=== PATIENT | male | born 1940 | race Caucasian/White ===

== ENCOUNTER 2017-01-07 10:30 | Day surgery (SDC) | payer MEDICARE, OTHER ==
[~2017-01-07] VITALS: Ht 165.1 cm; Wt 64.1 kg
[~2017-01-07 10:30] MED LIST: ALDACTONE25 MG PO; AMITRIPTYLINE H50 MG PO; AUGMENTIN 875-11 TAB PO; BACTRIM DS TABL1 TAB PO; BAYER CHEWABLE81 MG PO; CARAFATE1 G; CARDURA2 MG PO; CATAPRES0.1 MG PO; CIPRO500 MG PO; CORDARONE200 MG PO; COREG12.5 MG PO; COREG6.25 MG PO; COUMADIN1 MG PO; COUMADIN3 MG PO; COUMADIN5 MG PO; GLIPIZIDE10 MG PO; GLUCOPHAGE500 MG; GLUCOPHAGE500 MG PO; GLUCOTROL 5 MG T5 MG; HUMULIN R100 U/ML SC; HYDROCODON-ACE1 EAC7 PO; K-TAB10 MEQ; K-TAB10 MEQ PO; LASIX20 MG; LASIX20 MG PO; LEVAQUIN500 MG PO; LEVOXYL25 MCG PO; LOVENOX INJ; LOVENOX60 MG/0.6 SC; MULTIPLE VITAMI1 TA1 PO; NEURONTIN 300300 MG PO; PACERONE200 MG PO; PEPCID20 MG PO; PLAVIX75 MG PO; PRAVACHOL20 MG PO; PRILOSEC20 MG PO; PRINIVIL10 MG PO; ROBITUSSIN AC (10 M1 PO; SALINE FLUSH10 ML IV; SANTYL30 GM TOPICAL; SPRINTEC1 TAB PO; THERAGRAN M PO; TUMS500 MG PO; ULTRAM50 MG PO; ZESTRIL20 MG
[2017-01-07] MEDS ORDERED: CORDARONE200 MG PO (11:07)
[2017-01-07] MEDS ORDERED: ASPIRIN81 MG PO (11:08)
[2017-01-07] MEDS ORDERED: MULTI-DAY VITAM1 TAB PO (11:09)
[2017-01-07] MEDS ORDERED: PROBIOTIC1 EAC1 PO (11:09)
[2017-01-07] MEDS ORDERED: PEPCID20 MG PO (11:10)
[2017-01-07] MEDS ORDERED: LISINOPRIL10 MG PO (11:11)
[2017-01-07] MEDS ORDERED: PERCOCET 10/3251 TA1 PO (11:12)
[2017-01-07] MEDS ORDERED: REGLAN5 MG PO (11:12)
[2017-01-07] MEDS ORDERED: ZOFRAN4 MG PO (11:44)
[2017-01-07 11:52] VITALS: BP 165/75; Ht 165.1 cm; Wt 64.1 kg
[2017-01-07 12:22] LABS: BASOPHILS 0 % (0.0-2.0); EOSINOPHILS 0.5 % (0-7); HEMATOCRIT 26.8 % (42.0-54.0); HEMOGLOBIN 8.8 g/dL (13.5-17.5); IMMATURE GRANULOCYTES 0.2 % (0-5); MCH 30.1 pg (26.0-34.0); MCHC 32.8 g/dL (31.0-37.0); MCV 91.8 fL (80.0-100.0); MEAN PLATELET VOLUME 10.2 fL (7.4-10.4); MONOCYTES 6.6 % (2-11); NEUTROPHILS 79.7 % (40-80); PLATELET COUNT 160 10x3/uL (130-400); RBC 2.92 10x6/uL (4.20-6.10); RDW 15.2 % (11.5-14.5); WBC 5.9 10x3/uL (4.8-10.8)
[2017-01-07 12:42] LABS: ANION GAP 15.1 mmol/L (8-16); CALCIUM 8.5 mg/dL (8.5-10.1); CARBON DIOXIDE 23.8 mmol/L (21.0-32.0); CREATININE - SERUM 1.3 mg/dL (0.6-1.3); POTASSIUM - SERUM 4.9 mmol/L (3.5-5.1)
--- NOTE | 2017-01-08 18:05 | OP ---
PATIENT NAME: GAVIN CAMPO JR MEDICAL RECORD: [id number] :41 LOCATION:[facility]IZ ADMISSION DATE: SURGEON: YANETH GARNICA MD DATE OF OPERATION: 01/07/2017 PROCEDURE: EGD with biopsy. REFERRING PHYSICIAN: Dr. Candido Sage. INDICATIONS: Mr. 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 He had been on a trial of Reglan, which helped with the nausea and vomiting, but it was causing mental status changes and was discontinued. Since the Reglan has been discontinued, he has change his diet to more frequent, but smaller meals in his nausea and vomiting is better. He also has a history of chronic anemia. He presents for outpatient EGD. PREMEDICATIONS: Total IV anesthesia (end-stage liver disease, propofol 90 mg. INSTRUMENT: Olympus video gastroscope. PROCEDURE AND FINDINGS: After receiving informed consent, Mr. Campo's posterior pharynx was anesthetized with Cetacaine spray, placed in left lateral decubitus position, sedated as per anesthesia. After achieving an adequate level of sedation, gastroscope was introduced per orally and advanced to the duodenum without difficulty. The esophageal mucosa was without erythema, ulcers, or masses. Grade I esophageal varices were present in the esophagus. No stigmata of recent bleeding. Small hiatal hernia was noted. Gastric mucosa was notable for multiple streaks of petechiae in the antrum extending into the distal body of the stomach (mild watermelon stomach). There were few angioectasias in the body of the stomach with stigmata of recent bleeding and in the fundus was an small erosive appearing lesion measuring 0.5 cm in size. The edge of which was biopsied. Pylorus was patent and competent. There was mild diffuse erythema involving the antral mucosa and antral biopsies were obtained to rule out Helicobacter pylori. The duodenal bulbar mucosa was erythematous. The second portion of duodenum appeared normal. Gastroscope was then withdrawn. Mr. Campo tolerated the procedure well, no immediate complications. ASSESSMENT: 1. Grade I esophageal varices, nonhemorrhagic. 2. Small hiatal hernia. 3. Early watermelon stomach. 4. Gastritis, status post antral biopsy. 5. Solitary erosion in the fundus, status post biopsy. 6. Mild bulbar duodenitis. 7. 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 8. Nausea and vomiting. Improved likely secondary to diabetic related gastroparesis. RECOMMENDATIONS: 1. Continue small, but more frequent meals. 2. Avoid nonsteroidal anti-inflammatory drugs. 3. Referral to Dr. Will for consideration of argon plasma coagulation of gastric AVMs. OPERATIVE REPORT [id number] GAVIN CAMPO JR TRANSINT:[id number] Voice Confirmation ID: [id number] DOCUMENT ID: [id number] YANETH GARNICA MD at 1805 CC: ANGEL PRESCOTT MD and CANDIDO SAGE MD [id number] DICTATION DATE: 01/07/17 1306 DATA ANALYTICS ARCHITECT: 01/07/17 1434 [facility] 01/07/17 [facility] [address] [place] [address]
== END 2017-01-07 14:00 | disposition home or self-care (01) ==
LOC: D.OPS 10:30
PROVIDERS: Anesthesiology
DX: K70.30 Alcoholic cirrhosis of liver without ascites (principal); I85.10 Secondary esophageal varices without bleeding; K44.9 Diaphragmatic hernia without obstruction or gangrene; K31.819 Angiodysplasia of stomach and duodenum without bleeding; E11.43 Type 2 diabetes mellitus with diabetic autonomic (poly)neuropathy; K31.84 Gastroparesis; K29.50 Unspecified chronic gastritis without bleeding; K29.80 Duodenitis without bleeding; D53.9 Nutritional anemia, unspecified

== ENCOUNTER 2017-01-12 07:37 | Day surgery (SDC) | payer MEDICARE, OTHER ==
[~2017-01-12] VITALS: Ht 165.1 cm; Wt 64.0 kg
[~2017-01-12 07:37] MED LIST changes: +ASPIRIN81 MG PO; +LISINOPRIL10 MG PO; +MULTI-DAY VITAM1 TAB PO; +PERCOCET 10/3251 TA1 PO; +PROBIOTIC1 EAC1 PO; +REGLAN5 MG PO; +ZOFRAN4 MG PO
[2017-01-12 10:51] VITALS: BP 106/55; Ht 165.1 cm; Wt 64.0 kg
[2017-01-12 11:23] LABS: BASOPHILS 0 % (0.0-2.0); EOSINOPHILS 0.9 % (0-7); HEMATOCRIT 25.5 % (42.0-54.0); HEMOGLOBIN 8.2 g/dL (13.5-17.5); IMMATURE GRANULOCYTES 0.2 % (0-5); LYMPHOCYTES 18.1 % (15-50); MCH 29.8 pg (26.0-34.0); MCHC 32.2 g/dL (31.0-37.0); MCV 92.7 fL (80.0-100.0); MEAN PLATELET VOLUME 9.4 fL (7.4-10.4); MONOCYTES 7.7 % (2-11); NEUTROPHILS 73.1 % (40-80); PLATELET COUNT 164 10x3/uL (130-400); RBC 2.75 10x6/uL (4.20-6.10); RDW 15.5 % (11.5-14.5); WBC 4.7 10x3/uL (4.8-10.8)
--- NOTE | 2017-01-12 11:40 | NUR ---
DR RUDOLPH CALLED ABOUT THE H&H OF 8.2 & 25.5. NO NEW ORDERS RECEIVED
--- NOTE | 2017-01-12 15:08 | NUR ---
[address] DR. CHERRY. WEST
[2017-01-12] MEDS ORDERED: PERCOCET 10/3251 TA1 PO (18:30)
--- NOTE | 2017-02-02 14:52 | OP ---
PATIENT NAME: GAVIN CLARK JR MEDICAL RECORD: [id number] :41 LOCATION:D.OPS ADMISSION DATE: SURGEON: DOLORES CHERRY MD DATE OF OPERATION: 01/12/2017 PREOPERATIVE DIAGNOSIS: Open wound of the right below-knee amputation stump. POSTOPERATIVE DIAGNOSIS: Open wound of the right below-knee amputation stump. PROCEDURES: 1. Excisional debridement of the right BKA stump to include skin, subcutaneous tissue, portions of fat, fascia less than 20 cm. 2. Application of Neox graft. SURGEON: Dolores Cherry MD. ANESTHESIA: General. INTRAOPERATIVE COMPLICATIONS: None. SUMMARY OF PATHOLOGIC FINDINGS: What appeared to be very small defect actually turned out to be approximately 1 cm deep x 1 cm wide without undermining. OPERATIVE SUMMARY IN DETAIL: After obtaining the appropriate preoperative orthopedic surgery consent as well as anesthetic consultation, evaluation and clearance, the patient was brought to the operating room and placed on the operating table in supine position. After general laryngeal mask airway was administered, the patient's right BKA stump was prepped and draped in a routine sterile fashion. A sharp debridement was carried out first with the scalpel followed by curettage and rongeur. At this point, the Neox graft was then sewn underneath the skin, covering the opening, held in place firmly with 3-0 Monocryl. Very gentle reapproximation sutures were placed over the end of the wound in hopes that this would close up more rapidly. Sterile dressings were applied. The patient was awakened, taken to recovery room in stable condition. All final needle and sponge counts were correct. TRANSINT:[id number] Voice Confirmation ID: [id number] DOCUMENT ID: [id number] DOLORES CHERRY MD at 1452 CC: [id number] DICTATION DATE: 01/29/17 1017 CHIROPRACTIC PRACTICE MANAGER: 01/29/17 1804 [facility] 01/12/[address] [address]
== END 2017-01-12 21:05 | disposition home or self-care (01) ==
LOC: D.OPS 07:37 → D.PAN 13:00 → D.OPS 13:30
PROVIDERS: Orthopaedic Surgery
DX: T87.43 Infection of amputation stump, right lower extremity (principal); Z89.511 Acquired absence of right leg below knee; Z89.512 Acquired absence of left leg below knee; I25.10 Atherosclerotic heart disease of native coronary artery without angina pectoris; I10 Essential (primary) hypertension; E11.9 Type 2 diabetes mellitus without complications; K21.9 Gastro-esophageal reflux disease without esophagitis; J44.9 Chronic obstructive pulmonary disease, unspecified; Z95.5 Presence of coronary angioplasty implant and graft; K44.9 Diaphragmatic hernia without obstruction or gangrene; E03.9 Hypothyroidism, unspecified

== ENCOUNTER 2017-01-27 13:03 | Outpatient (CLI) | payer MEDICARE, OTHER ==
[~2017-01-27] VITALS: Ht 165.1 cm; Wt 64.1 kg
[2017-01-27 14:37] VITALS: BP 133/66; Ht 165.1 cm; Wt 64.1 kg
--- NOTE | 2017-01-27 16:00 | NUR ---
1525 PRE MEDS GIVEN PER JAN. HGB 7.8 BLOOD CHECKED AT BEDSIDE BY THIS NURSE AND CASSIDY SANCHEZ RN. INITIATED BY ALARIS PUMP AT 50/CC/HR. 1540 PT. DOSING. DENIES PROBLEMS WITH BLOOD, RATE INCREASED TO 100/CC/HR. 1555 BLOOD GOING WELL, RATE INCREASED TO 125/CC/HR.
--- NOTE | 2017-01-27 16:13 | NUR ---
1610 BLOOD GOING WELL, RATE INCREASED TO 200/CC/HR. REG ADA SUPPER TRAY ORDERED.
--- NOTE | 2017-01-27 16:40 | NUR ---
1640 ADA SUPPER DIET SERVED. BLOOD INFUSING WELL. RATE INCREASED TO 225/CC/HR.
--- NOTE | 2017-01-27 17:34 | NUR ---
1715 BLOOD HAS COMPLETED LINE BEING FLUSHED WITH NS. PT ATE 80% ADA SUPPER DIET WHICH WAS SERVED.
--- NOTE | 2017-01-27 17:36 | NUR ---
5170 2ND UNIT CHECKED AT BEDSIDE BY THIS NURSE AND ERIKA DOMÍNGUEZ RN. INITIATED BY PUMP AT 50/CC/HR.
--- NOTE | 2017-01-27 17:46 | NUR ---
1745 DENIES PROBLEMS WITH TRANSFUSION, RATE INCREASED TO 150/CC/HR. NO REQUESTS.
--- NOTE | 2017-01-27 18:04 | NUR ---
1800 NO PROBLEMS NOTED WITH BLOOD TRANSFUSION, RATE INCREASED TO 200/CC/HR.
--- NOTE | 2017-01-27 19:13 | NUR ---
1909 BLOOD HAS COMPLETED, LINE BEING FLUSHED WITH NS.
--- NOTE | 2017-01-27 20:25 | NUR ---
2009 NO ADVERSE REACTION NOTED WITH BLOOD. IV DC'D WITH CATH INTACT. ASSISSTED PT WITH DRESSING AND TRANSFER TO TO CAR, LEAD PERSON HOME. DC INSTS REVIEWED WITH PT AND . VOICED UNDERSTANDING.
== END 2017-01-27 20:25 | disposition home or self-care (01) ==
LOC: D.OPS 13:03
DX: D50.9 Iron deficiency anemia, unspecified (principal); E11.9 Type 2 diabetes mellitus without complications; I74.9 Embolism and thrombosis of unspecified artery

== ENCOUNTER 2017-03-12 09:37 | Day surgery (SDC) | payer MEDICARE, OTHER ==
[~2017-03-12] VITALS: Ht 165.1 cm; Wt 63.5 kg
[2017-03-12 12:08] VITALS: BP 146/77; Ht 165.1 cm; Wt 63.5 kg
--- NOTE | 2017-03-12 12:16 | NUR ---
1215 USED DIAL SOAP TO SHOWER WITH
[2017-03-12 12:27] LABS: BASOPHILS 0 % (0.0-2.0); EOSINOPHILS 0.7 % (0-7); HEMATOCRIT 27.3 % (42.0-54.0); HEMOGLOBIN 9.1 g/dL (13.5-17.5); IMMATURE GRANULOCYTES 0.2 % (0-5); LYMPHOCYTES 12.4 % (15-50); MCH 31.6 pg (26.0-34.0); MCHC 33.3 g/dL (31.0-37.0); MCV 94.8 fL (80.0-100.0); MEAN PLATELET VOLUME 9.7 fL (7.4-10.4); MONOCYTES 7.4 % (2-11); NEUTROPHILS 79.3 % (40-80); PLATELET COUNT 168 10x3/uL (130-400); RBC 2.88 10x6/uL (4.20-6.10); RDW 16.8 % (11.5-14.5); WBC 5.6 10x3/uL (4.8-10.8)
[2017-03-12 12:47] LABS: ANION GAP 13.8 mmol/L (8-16); CALCIUM 8.5 mg/dL (8.5-10.1); CARBON DIOXIDE 23.1 mmol/L (21.0-32.0); CREATININE - SERUM 1.4 mg/dL (0.6-1.3); POTASSIUM - SERUM 4.9 mmol/L (3.5-5.1)
[2017-03-12 12:51] LABS: APTT 28.9 SECONDS (22.8-39.4); INR 1.04 (0.85-1.17); PROTIME 13.4 SECONDS (11.6-15.0)
[2017-03-12] MEDS ORDERED: PERCOCET 10/3251 TA1 PO (14:02)
--- NOTE | 2017-03-12 15:44 | NUR ---
1530 VERIFIED WITH ANESTHESIA PATIENT DOES NOT HAVE TO VOID BEFORE DISCHARGE
--- NOTE | 2017-03-12 16:49 | NUR ---
1600-RECD REPORT FROM TRISH ANTHONY R.N. 1615-DISCHARGE INSTRUCTIONS REVIEWED WITH PATIENT AND . REQUESTS TRANSPORT HOME VIA AMBULANCE. 1630-DR CHERRY APPROVES TRANPORT VIA AMBULANCE AND [facility] NOTIFIED.
--- NOTE | 2017-03-12 18:02 | NUR ---
1800-PATIENT RESTING WITHOUT COMPLAINT OF PAIN. DIET SODA PROVIDED. AT BEDSIDE.
--- NOTE | 2017-03-12 18:35 | NUR ---
1835-[facility] HERE FOR TRANSPORT HOME. HERE WITH HIS PERSONAL BELONGINGS.
--- NOTE | 2017-03-16 09:11 | OP ---
PATIENT NAME: GAVIN CLARK JR MEDICAL RECORD: [id number] :41 LOCATION:D.KATIA ADMISSION DATE: SURGEON: DOLORES CHERRY MD DATE OF OPERATION: 03/12/2017 PREOPERATIVE DIAGNOSIS: Below-knee amputation stump breakdown, right. POSTOPERATIVE DIAGNOSIS: Below-knee amputation stump breakdown, right. PROCEDURE: Revision of BKA stump. SURGEON: Dolores Cherry MD. ANESTHESIA: General. Excisional debridement includes skin, subcutaneous tissue, portions of fat, fascia, muscle and bone greater than 20 cm. OPERATIVE SUMMARY IN DETAIL: After obtaining the appropriate preoperative orthopedic surgery consent as well as anesthetic consultation, evaluation and clearance, the patient was brought to the operating room and placed on the operating table in supine position. After general laryngeal mask was administered, the right lower extremity was prepped and draped in a routine sterile fashion. The patient had a protruding tibia. An incision was made over the old incision line. After curettage, debridement and irrigation, periosteum was stripped circumferentially about the fibula. Portions of fascia and muscle were debrided and did not appear nonviable. A power saw was then used to take off approximately 1 cm of the entire tip of the distal tibia. Having completed this, the wound was again irrigated and closed with #1 Vicryl followed by 2-0 Prolene in interrupted mattress fashion. Sterile dressings were applied. A posterior splint was applied. The patient was awakened and taken back to outpatient in stable condition. All final needle and sponge counts were correct. TRANSINT:[id number] Voice Confirmation ID: [id number] DOCUMENT ID: [id number] DOLORES CHERRY MD at 0911 CC: [id number] DICTATION DATE: 03/12/17 1416 DANCING TEACHER: 03/12/17 1824 [facility] 03/12/17 [place] [id number]
== END 2017-03-12 18:35 | disposition home or self-care (01) ==
LOC: D.OPS 09:37 → D.PAN 12:00 → D.OPS 15:30 → D.PAN 15:30 → D.OPS 18:35
PROVIDERS: Anesthesiology
DX: T87.89 Other complications of amputation stump (principal)

== ENCOUNTER 2017-04-22 08:07 | Day surgery (SDC) | payer MEDICARE, OTHER ==
[~2017-04-22] VITALS: Ht 165.1 cm; Wt 63.5 kg
--- NOTE | ~2017-04-22 | OP ---
PATIENT NAME: GAVIN CLARK JR MEDICAL RECORD: [id number] :41 LOCATION:D.OPS ADMISSION DATE: SURGEON: JIMMY COLEMAN MD DATE OF OPERATION: 04/22/2017 PREOPERATIVE DIAGNOSES: 1. Acute blood loss anemia requiring transfusions. 2. 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 POSTOPERATIVE DIAGNOSES: 1. Acute blood loss anemia requiring transfusions. 2. 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 PROCEDURES: 1. Esophagogastroduodenoscopy with antral biopsies. 2. Ablation of gastric antral vascular ectasias with the argon plasma strategic communications specialist, which is a radiofrequency type of ablation of a benign gastric process. ENDOSCOPIC COURSE: The patient was conveyed to the operating room electively on 04/22/2017. General anesthesia was induced by the anesthesia staff. A bite block was inserted. A gastroscope was inserted into the mouth. It was advanced easily into the hypopharynx. The esophagus was easily intubated as were the stomach and duodenum. Upon withdrawal, retroflexed and angulus views were obtained. Antral biopsies were obtained. The degree of the gastric antral vascular ectasias was not marked. Utilizing the esophageal setting in the forced mode, I ablated all the gastric antral vascular ectasias that I could identify. I saw no ectasias in the cardia, none in the body of the stomach. I slowly withdrew the endoscope. I noted no esophageal varices. The patient was extubated and conveyed to post-anesthesia care unit where he was in stable condition. I plan to see him in the office in 2-3 weeks. He can undergo these procedures on a p.r.n. basis. TRANSINT:[id number] Voice Confirmation ID: [id number] DOCUMENT ID: [id number] JIMMY COLEMAN MD CC: YANETH GARNICA MD, MARIELLE YANG MD and CHARLIE TORRES [id number] DICTATION DATE: 04/22/171246 CIRCULATION SUPERVISOR: 04/22/172349 [facility] 04/22/17 [facility] [address] [place] [address]
--- NOTE | ~2017-04-22 | HP ---
PATIENT: GAVIN CAMPO JR MEDICAL RECORD: [id number] ACCOUNT: [id number] LOCATION:[facility] : 41 ADMISSION DATE: 04/22/17 HISTORY AND PHYSICAL EXAMINATION CHIEF COMPLAINT: Watermelon stomach. 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 The risks, possible complications and alternatives to procedure were explained to the patient. He elects to proceed. Just before the procedure, I contacted Dr. Sage by phone and we discussed the fact that Mr. Campo is requiring 2 units of blood due to a low H&H. ALLERGIES: OMEPRAZOLE, PANTOPRAZOLE, FLU VACCINE WELL REGLAN. HOME MEDICATIONS: Include Neurontin, Percocet, metformin, aspirin, clonidine, lisinopril, Coreg, Lasix, Synthroid. PAST MEDICAL AND SURGICAL HISTORY: Noninsulin dependent diabetes mellitus, coronary stents times 5, anemia, coronary artery disease. SOCIAL HISTORY: Previous smoker. PHYSICAL EXAMINATION: GENERAL: The patient does not appear acutely ill. He does appear chronically ill. VITAL SIGNS: Reviewed. HEAD: External ears appear normal. EYES: Extraocular movements are intact. NECK: Trachea is midline. CHEST: No intercostal retractions. PULMONARY: Nonlabored, no stridor. IMPRESSION: Acute blood loss anemia requiring transfusions, likely due to gastric antral vascular ectasias. PLAN: As described above. TRANSINT:[id number] Voice Confirmation ID: [id number] DOCUMENT ID: [id number] JIMMY COLEMAN MD CC: YANETH GARNICA MD, MARIELLE SAGE MD, CHARLIE TORRES MD and [id number] DUARTE DICTATION DATE: 04/22/17 125 JOINT TERMINAL ATTACK CONTROLLER: 04/22/17 1825 REG [facility] [address] [place] [address]
[2017-04-22] MEDS ORDERED: DOXYCYCLINE HY100 M2 PO (09:09)
[2017-04-22 09:13] LABS: HEMATOCRIT 21.4 % (42.0-54.0); MCH 29.1 pg (26.0-34.0); MCHC 31.8 g/dL (31.0-37.0); MCV 91.5 fL (80.0-100.0); MEAN PLATELET VOLUME 9.4 fL (7.4-10.4); RBC 2.34 10x6/uL (4.20-6.10); RDW 14.5 % (11.5-14.5); WBC 4.6 10x3/uL (4.8-10.8)
[2017-04-22 09:17] VITALS: Ht 165.1 cm; Wt 63.5 kg
[2017-04-22 09:25] LABS: HEMOGLOBIN 6.8 g/dL (13.5-17.5)
[2017-04-22 09:34] LABS: ANION GAP 16.2 mmol/L (8-16); CALCIUM 8.8 mg/dL (8.5-10.1); CARBON DIOXIDE 21.7 mmol/L (21.0-32.0); CREATININE - SERUM 1.8 mg/dL (0.6-1.3); POTASSIUM - SERUM 4.9 mmol/L (3.5-5.1)
--- NOTE | 2017-04-22 19:24 | NUR ---
1045--FIRST UNIT PRBC'S STARTED. ASHLYN RN 1315--FIRST UNIT PRBC'S COMPLETE. ASHLYN RN 1350--SECOND UNIT PRBC'S STARTED. ASHLYN RN 1545--SECOND UNIT PRBC'S COMPLETE. ASHLYN JOSEPH
--- NOTE | 2017-04-22 19:28 | NUR ---
1700--IV DC'D, PT DRESSING WITH 'S ASSISTANCE. ASHLYN JOSEPH 4558--DISCHARGE INSTRUCTIONS GIVEN, PT VERBALIZES UNDERSTANDING. PT OFF UNIT VIA WC. ASHLYN JOSEPH 3369--ALL VITAL SIGNS CHARTED ON BLOOD TRANSFUSION SHEET ON CHART. ASHLYN JOSEPH
== END 2017-04-22 17:42 | disposition home or self-care (01) ==
LOC: D.OPS 08:07 → D.PAN 10:15 → D.OPS 10:25 → D.PAN 10:25 → D.OPS 12:15
PROVIDERS: Anesthesiology
DX: K31.811 Angiodysplasia of stomach and duodenum with bleeding (principal); K29.50 Unspecified chronic gastritis without bleeding; D62 Acute posthemorrhagic anemia; E11.9 Type 2 diabetes mellitus without complications; I25.10 Atherosclerotic heart disease of native coronary artery without angina pectoris; Z95.1 Presence of aortocoronary bypass graft; Z87.891 Personal history of nicotine dependence; Z79.84 Long term (current) use of oral hypoglycemic drugs; Z79.82 Long term (current) use of aspirin; Z79.899 Other long term (current) drug therapy; Z88.7 Allergy status to serum and vaccine; Z88.8 Allergy status to other drugs, medicaments and biological substances

== ENCOUNTER 2017-05-14 09:05 | Outpatient (CLI) | payer MEDICARE, OTHER ==
[~2017-05-14] VITALS: Ht 165.1 cm; Wt 64.1 kg
[~2017-05-14 09:05] MED LIST changes: +DOXYCYCLINE HY100 M2 PO
[2017-05-14 09:40] VITALS: BP 137/53; Ht 165.1 cm; Wt 64.1 kg
--- NOTE | 2017-05-14 12:20 | NUR ---
RECEIVED CARE. PRBC'S INFUSING AT 150ML/HR VIA PUMP. NO SIGNS OF TRANSFUSION REACTION. REGULAR LUNCH TRAY GIVEN.
--- NOTE | 2017-05-14 18:25 | NUR ---
1730 IV DC WITH CATHER TIP INTACT
== END 2017-05-14 18:15 | disposition home or self-care (01) ==
LOC: D.OPS 09:05
DX: D64.9 Anemia, unspecified (principal)

== ENCOUNTER 2017-05-22 12:08 | Inpatient (IN) | payer MEDICARE, OTHER ==
[~2017-05-22] VITALS: Ht 165.1 cm; Wt 63.5 kg
--- NOTE | ~2017-05-22 | OP ---
PATIENT NAME: GAVIN CLARK JR MEDICAL RECORD: [id number] :41 LOCATION:D.MS [place] ADMISSION DATE:05/22/17 SURGEON: JIMMY COLEMAN MD DATE OF OPERATION: 05/22/2017 PREOPERATIVE DIAGNOSIS: Acute cholecystitis. POSTOPERATIVE DIAGNOSES: 1. Acute cholecystitis with extensive intraabdominal adhesions, also severe macronodular cirrhosis. 2. Probable hepatic tumor, likely a hepatocellular carcinoma. PROCEDURE: 1. Laparoscopic cholecystectomy. 2. Intraoperative cholangiography without immediate surgeon interpretation. 3. Liver biopsies, core. SURGEON: Jimmy Coleman MD OBIEE CONSULTANT: None. BLOOD LOSS: Minimal. ANESTHESIA: General. COMPLICATIONS: None. The risks, possible complications, and alternatives to the procedure were explained to the patient. He elects to proceed. OPERATIVE COURSE: The patient was conveyed to the operating room electively on 05/22/2017. General anesthesia was induced by the anesthesia staff. The abdomen was sterilely prepped and draped. A small skin incision was accomplished in the left upper quadrant. A Veress needle was inserted through the skin wanda into the peritoneal cavity. CO2 insufflation was begun. After insufflating the abdomen, a 5-mm trocar was inserted through an incision in the right upper quadrant. Another 5-mm trocar was inserted through an incision in the right upper quadrant. I needed to make some space, so that I could place additional trocars, so adhesiolysis was necessary. The adhesiolysis took 19 minutes. It was performed with the Harmonic scalpel. Once I had cleared enough room in the right upper quadrant to perform a cholecystectomy, a 12-mm trocar was inserted through an incision at the umbilicus where there was an umbilical hernia, which was not incarcerated. Also, another 5-mm trocar was inserted through an incision in the epigastrium. During insertion of the Veress needle and all trocars, there appeared to have been no injury to the bowels, any intraperitoneal or retroperitoneal structures. Under laparoscopic guidance, I percutaneously accessed the right upper quadrant and performed some 18-gauge core needle liver biopsies. The indication for the liver biopsies is cirrhosis. I then lifted up the liver and identified what appeared to be a mass just lateral to the gallbladder. I biopsied this with the 18-gauge core needle liver biopsy device as well. The biopsy sites were made hemostatic with electrocautery. I advanced a cholangiogram trocar. I punctured the fundus of the gallbladder. I injected dye. Real time cholangiographic images were obtained and these were placed in the PACS system for radiologist to OPERATIVE REPORT [id number] GAVIN CLARK JR review. The gallbladder was then grasped and retracted cephalad. The infundibulum was grasped and retracted laterally. Blunt dissection was begun on the triangle of Calot. One cystic artery and 1 cystic duct were identified. These were clipped multiply and divided between clips. The gallbladder was then excised from its bed in the liver. It was placed within an Endobag retrieval device and was withdrawn through the umbilical fascial defect. The 12-mm trocar was placed and the abdomen reinsufflated. I irrigated and aspirated the right upper quadrant. There was no bleeding even at low pressure of 8. Alok was added to the gallbladder fossa for additional hemostasis. All the trocars were removed and the abdomen desufflated. The umbilical fascial defect was closed with a [id number] 0 Vicryl suture. The skin at the umbilicus was closed with interrupted 4-0 Vicryl Rapide sutures. The other skin incisions were closed with interrupted intracuticular 3-0 Vicryls. Benzoin and Steri-Strips were applied. The patient was then extubated and conveyed to the post-anesthesia care unit where he was in stable condition. I contacted his primary care physician, Dr. Candido Sage and informed him of the operative findings. I have also reviewed the operative photographs with the patient's . TRANSINT:[id number] Voice Confirmation ID: [id number] DOCUMENT ID: [id number] JIMMY COLEMAN MD CC: [id number] DICTATION DATE: 05/22/172200 CONTRACT PROGRAMMER: 05/23/17 0234 ADM IN [facility] [address] [place] [address]
--- NOTE | ~2017-05-22 | CN ---
PATIENT NAME:GAVIN CLARK JR MEDICAL RECORD: [id number] : 41 LOCATION:D.MS [place] ADMIT DATE: 05/22/17 ACCOUNT: [id number] CONSULTING PHYSICIAN: JIMMY COLEMAN MD REFERRING PHYSICIAN: MARIELLE SAGE MD DATE OF CONSULTATION: 05/22/2017 CHIEF COMPLAINT: Pain. HISTORY OF PRESENT ILLNESS: The patient has had pain for several days. He had a CT scan today, which was suspicious for a gallbladder infection. He is to undergo cholecystectomy, intraoperative cholangiography, and possible liver biopsy. The risks, possible complications and alternatives to procedure were explained to the patient. He elects to proceed. His symptoms came on slowly. Eating aggravates. Also, palpation aggravates. Nothing alleviates. The symptoms are constant. ALLERGIES: FLU VACCINE WHICH CAUSE HIVES, OMEPRAZOLE, WHICH CAUSES HIM TO BE SHAKY WELL REGLAN, WHICH CAUSES HIM TO BE "CRAZY" HOME MEDICATIONS: Clonidine, Cordarone, Coreg, Glucophage, Glucotrol, K-Dur, Lasix, Levoxyl, Neurontin, Pepcid, Percocet and Zofran. SOCIAL HISTORY: He is a former smoker, quit 2 years ago. PAST MEDICAL AND SURGICAL HISTORY: Coronary artery disease, gastric antral vascular ectasias, hypertension, AFib, atrial flutter, noninsulin-dependent diabetes mellitus, hypothyroidism, on replacement therapy, history of coronary stents, gastroesophageal reflux, chronic nausea, aglkb-tc-ninpyjn renal failure, history of cirrhosis, history of hepatitis A in the past, history of peripheral vascular disease. He has undergone a lower extremity amputation. REVIEW OF SYSTEMS: Negative for CVA or seizures. Negative for COPD. Positive for nausea. REVIEW OF SYSTEMS: Negative other than as is described above. PHYSICAL EXAMINATION: GENERAL: The patient does not appear acutely ill. He does appear chronically ill. VITAL SIGNS: Reviewed. EARS: Appear normal. NECK: Trachea is midline. CHEST: No intercostal retractions. PULMONARY: Mildly labored. ABDOMEN: Right upper quadrant tenderness with guarding. EXTREMITIES: No peripheral cyanosis. INTEGUMENT: There is a bandage over the BKA stump. PSYCHIATRIC: Normal affect. NEUROLOGIC: Nonfocal, no lethargy. BACK: Mild thoracic kyphosis is present. LYMPHATICS: No lymphangitic streaking of the exposed extremities. DIAGNOSTIC: CT images have been reviewed by me. I have also reviewed the CT report. I discussed this case with Dr. Sage personally. CONSULT REPORT [id number] GAVIN CLARK JR IMPRESSION: Acute cholecystitis. PLAN: Laparoscopic cholecystectomy, possible open procedure intraoperative cholangiogram, and possible liver biopsy. The risks, possible complications and alternatives to procedure were explained to the patient. He elects to proceed. Discussion specifically included, but was not limited to, bleeding requiring emergency reoperation, infection, common ductal injury and an open procedure. TRANSINT:[id number] Voice Confirmation ID: [id number] DOCUMENT ID: [id number] JIMMY COLEMAN MD CC: MARIELLE SAGE MD and ERNESTO SUH MD [id number] DICTATION DATE: 05/22/171837 ELECTRONICS ENGINEERING TECHNOLOGIST: 05/23/17 0025 ADM IN [place] [id number] [place] [address]
--- NOTE | 2017-05-22 14:50 | NUR ---
RECEIVED PATIENT VIA WHEELCHAIR FROM XRAY. PATIENT IS AWAKE, ALERT, AND ORIENTED X4. WITH PATIENT. PATIENT STATES HE WENT TO DR. YANG OFFICE TODAY AND THEY SENT HIM HERE TO HAVE AN XRAY AND SURGERY. PATIENT COMPLAINS OF PAIN IN RIGHT SIDE OF HIS ABDOMEN. PATIENT RATES HIS PAIN LEVEL AN "8" ON A 0-10 SCALE. PATIENT STATES HE DID HAVE SOME NAUSEA AND VOMITING LAST NIGHT. ORIENTED PATIENT TO ROOM AND CALL LIGHT. WILL MONITOR
[2017-05-22 15:30] LABS: APTT 34.1 SECONDS (22.8-39.4); INR 1.13 (0.85-1.17); PROTIME 14.4 SECONDS (11.6-15.0)
[2017-05-22 17:43] VITALS: BP 151/66; BMI 23.3
[2017-05-22 17:45] LABS: BASOPHILS 0 % (0-2); EOSINOPHILS 0.3 % (0-7); HEMOGLOBIN 10.5 g/dL (13.5-17.5); IMMATURE GRANULOCYTES 0.3 % (0-5); LYMPHOCYTES 9.2 % (15-50); MCH 29.5 pg (26.0-34.0); MCHC 32.8 g/dL (31.0-37.0); MCV 89.9 fL (80.0-100.0); MEAN PLATELET VOLUME 9.5 fL (7.4-10.4); MONOCYTES 9.5 % (2-11); NEUTROPHILS 80.7 % (40-80); PLATELET COUNT 153 10x3/uL (130-400); RBC 3.56 10x6/uL (4.20-6.10); RDW 17.1 % (11.5-14.5); WBC 6.5 10x3/uL (4.8-10.8)
[2017-05-22 17:53] LABS: ANION GAP 14.7 mmol/L (8-16); CALCIUM 9.1 mg/dL (8.5-10.1); CARBON DIOXIDE 23.1 mmol/L (21.0-32.0); CREATININE - SERUM 1.6 mg/dL (0.6-1.3); POTASSIUM - SERUM 4.8 mmol/L (3.5-5.1)
--- NOTE | 2017-05-22 19:20 | NUR ---
ASSESSMENT COMPLETED, NO ACUTE DISTRESS NOTED, DAY SHIFT NURSE PERFORMING PREOP ORDERS FOR LAP CRISTOBAL, IN ROOM, BOTH DENY NEEDS, SR'S UP X2, CL IN REACH, WILL MONITOR
--- NOTE | 2017-05-22 19:45 | NUR ---
TAKEN TO SURGERY VIA BED BY OR STAFF
[2017-05-22 20:00] VITALS: BP 157/75
--- NOTE | 2017-05-22 20:53 | NUR ---
PT IS UZMA BELOW KNEE AMP, EXTRA PADDING AND PILLOWS PLACED BETWEEN LEGS AND FOOTBOARD PER NAZIA
--- NOTE | 2017-05-22 22:40 | NUR ---
PT RETURNED FROM SURGERY, ASSESSMENT COMPLETE, BANDAIDS TO LAPSITES, VSS, NO DISTRESS NOTED, WILL IMPLEMENT ORDERS, IN ROOM, SR' UP, CL IN REACH, WILL MONITOR
--- NOTE | 2017-05-22 23:41 | NUR ---
RESTING WITH EYES CLOSED, RESP WITH EASE, EASILY AROUSED, VSS, SR'S UP, CL IN REACH
--- NOTE | 2017-05-23 01:30 | NUR ---
CONTINUES TO REST WITH EYES CLOSED, NO DISTRESS NOTED, FALL PRECAUTIONS IN PLACE, CL IN REACH
[2017-05-23 05:09] VITALS: BP 160/70
[2017-05-23 07:37] LABS: BASOPHILS 0 % (0-2); EOSINOPHILS 0.2 % (0-7); HEMATOCRIT 33.4 % (42.0-54.0); HEMOGLOBIN 10.8 g/dL (13.5-17.5); IMMATURE GRANULOCYTES 0.3 % (0-5); LYMPHOCYTES 7.8 % (15-50); MCH 29.3 pg (26.0-34.0); MCHC 32.3 g/dL (31.0-37.0); MCV 90.5 fL (80.0-100.0); MEAN PLATELET VOLUME 9.7 fL (7.4-10.4); MONOCYTES 7.3 % (2-11); NEUTROPHILS 84.4 % (40-80); PLATELET COUNT 179 10x3/uL (130-400); RBC 3.69 10x6/uL (4.20-6.10); RDW 17.2 % (11.5-14.5); WBC 5.8 10x3/uL (4.8-10.8)
--- NOTE | 2017-05-23 07:49 | NUR ---
PATIENT RESTING IN HIS BED. AT PATIENT'S BEDSIDE. PATIENT COMPLAINS OF PAIN IN HIS ABDOMEN FROM HIS SURGERY LAST NIGHT. PATIENT RATES HIS PAIN LEVEL A "7" ON A 0-10 SCALE. PRN MORPHINE GIVEN TO PATIENT FOR PAIN LEVEL. PATIENT TOLERATED WELL. ASSESSMENT COMPLETED. SEE FLOWSHEET FOR ANY DETAILS. IV SITE PATENT WITHOUT ANY S/S OF INFECTION NOTED IN PATIENT'S LEFT UPPER ARM. PATIENT HAS A BILATERAL LOWER EXTREMITIES AMPUTATION WITH A PROTHESIS ON THE RIGHT LOWER EXTREMITY. PATIENT DENIES ANY FURTHER NEEDS. CALL LIGHT IN PATIENT'S REACH. WILL MONITOR.
[2017-05-23 08:20] LABS: ALBUMIN 2.4 g/dL (3.4-5.0); ALKALINE PHOSPHATASE 268 U/L (46-116); ALT (SGPT) 57 U/L (10-68); BILIRUBIN - TOTAL 0.62 mg/dL (0.2-1.3); CALCIUM 8.6 mg/dL (8.5-10.1); CARBON DIOXIDE 20.6 mmol/L (21.0-32.0); CHLORIDE - SERUM 103 mmol/L (98-107); CREATININE - SERUM 1.4 mg/dL (0.6-1.3); MAGNESIUM - SERUM 1.2 mg/dL (1.8-2.4); PHOSPHOROUS 4.1 mg/dL (2.5-4.9); POTASSIUM - SERUM 4.3 mmol/L (3.5-5.1); PROTEIN - SERUM 6.7 g/dL (6.4-8.2); SODIUM 135 mmol/L (136-145); UREA NITROGEN 23 mg/dL (7-18); eGFR NON AFRICAN AMERICAN 52 mL/min (90-120)
[2017-05-23 08:40] LABS: CALC OSMOLALITY 279 mosm/kg (275-300); GLUCOSE 210 mg/dL (74-106); TROPONIN-I < 0.017 ng/mL (0.000-0.060)
[2017-05-23 09:14] VITALS: BP 156/95
[2017-05-23 09:49] VITALS: Ht 165.1 cm; Wt 63.5 kg
[2017-05-23 12:20] VITALS: BP 161/95
--- NOTE | 2017-05-23 13:21 | NUR ---
IN PATIENT'S ROOM AND GIVING PATIENT A BED BATH. PATIENT DENIES ANY PAIN OR NEEDS AT PRESENT TIME. CALL LIGHT IN PATIENT'S REACH. WILL MONITOR.
[2017-05-23 15:58] VITALS: BP 185/89
--- NOTE | 2017-05-23 16:21 | NUR ---
PATIENT COMPLAINS OF PAIN IN ABDOMEN FROM HIS SURGERY LAST NIGHT. PATIENT RATES HIS PAIN LEVEL A "7" ON A 0-10 SCALE. PRN MORPHINE 2 MG IV GIVEN TO PATIENT FOR PAIN. PATIENT TOLERATED WELL. CALL LIGHT IN PATIENT'S REACH. WILL MONITOR.
[2017-05-23 23:14] VITALS: BP 179/51
[2017-05-24 04:00] VITALS: BP 188/753
[2017-05-24 07:14] LABS: BASOPHILS 0 % (0-2); EOSINOPHILS 0 % (0-7); HEMATOCRIT 32.4 % (42.0-54.0); HEMOGLOBIN 10.6 g/dL (13.5-17.5); IMMATURE GRANULOCYTES 0.4 % (0-5); LYMPHOCYTES 5.3 % (15-50); MCH 29.2 pg (26.0-34.0); MCHC 32.7 g/dL (31.0-37.0); MCV 89.3 fL (80.0-100.0); MEAN PLATELET VOLUME 9.5 fL (7.4-10.4); NEUTROPHILS 84.3 % (40-80); PLATELET COUNT 176 10x3/uL (130-400); RBC 3.63 10x6/uL (4.20-6.10); RDW 17.3 % (11.5-14.5)
[2017-05-24 07:16] LABS: WBC 9.6 10x3/uL (4.8-10.8)
[2017-05-24 07:24] LABS: ANION GAP 13.9 mmol/L (8-16); CALCIUM 8.8 mg/dL (8.5-10.1); CARBON DIOXIDE 20.7 mmol/L (21.0-32.0); CREATININE - SERUM 1.2 mg/dL (0.6-1.3)
[2017-05-24 07:25] LABS: POTASSIUM - SERUM 3.6 mmol/L (3.5-5.1)
[2017-05-24 09:35] VITALS: BP 152/77
--- NOTE | 2017-05-24 10:32 | NUR ---
SCHEDULED MORNING MEDICATIONS GIVEN TO PATIENT. PATIENT TOLERATED WELL. IN THE ROOM. PATIENT DENIES NEEDS. CALL LIGHT IN REACH. WILL MONITOR.
--- NOTE | 2017-05-24 10:57 | HP ---
PATIENT: GAVIN CLARK JR MEDICAL RECORD: [id number] ACCOUNT: [id number] LOCATION:[id number] : 41 ADMISSION DATE: 05/22/17 HISTORY AND PHYSICAL EXAMINATION REASON FOR ADMISSION: Right upper quadrant pain for 2 days. HISTORY OF PRESENT ILLNESS: The patient is a 76-year-old male with history of watermelon stomach and gastric ulcers. He had an EGD several weeks ago by Dr. Will with cautery of his stomach. The patient has had recurrent problems with vomiting and has been evaluated by Dr. Radha Alonzo from GI. He also has a history of cirrhosis. Last 2 days, he has had right upper quadrant abdominal pain that was precluding him from eating. He has had some nausea with occasional vomiting. He was scheduled for a gallbladder ultrasound next week by Dr. Will to assess his vomiting, but he came to the office today. 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 Savage, cellulitis of his DKA stumps, one currently nonhealing, nicotine addiction, COPD, remote gangrene of his right foot and left foot requiring amputations, osteoarthritis, hyperlipidemia, hemangioma of the liver, benign colon polyps, chronically elevated CEA, and esophageal varices. PAST SURGICAL HISTORY: He has had bilateral below the knee amputations, PTCA of LAD times 2, resection of the colon for diverticular disease in the past, umbilical hernia repair, thermal therapy of his stomach on multiple occasions last 2 weeks ago. He had multiple procedures on his lower extremities for PAD with stents, ultimately had AKAs bilaterally. SOCIAL HISTORY: He is , he used to be a moderate alcohol drinker and smoker, he is doing none currently. FAMILY HISTORY: Positive for hypertension in his parents. ALLERGIES: PROTONIX CAUSING HIVES, PRILOSEC, FLU VACCINE AND REGLAN. PREMEDICATIONS: Metformin 500 mg b.i.d., Zofran 4 mg p.r.n. nausea or vomiting, Zirconia 5/325 mg one q.4 hours p.r.n. pain, amiodarone 200 mg p.o. b.i.d., clonidine 0.1 mg p.o. at h.s. p.r.n. for elevated blood pressure, Lasix 20 mg p.o. q.a.m., glipizide 10 mg p.o. b.i.d., Coreg 25 mg p.o. b.i.d., levothyroxine 25 mcg p.o. q.a.m. a.c. breakfast and lisinopril 10 mg p.o. daily. REVIEW OF SYSTEMS: GENERAL: He has had fever to 101 yesterday, but no fatigue or recent altered mental status. HEENT: Denies sinus congestion, sore throat or recent visual change. He has had some trouble with his hearing. RESPIRATORY: No SOB or cough. CARDIAC: No exertional rest chest pain. GASTROINTESTINAL: He has had nausea with intermittent vomiting, which is chronic. He had right upper quadrant pain for the last 2 days, it is has been HISTORY AND PHYSICAL [id number] GAVIN CLARK JR more severe, his stools are sometimes dark colored due to iron supplements. He has had no bright red blood per rectum. GENITOURINARY: Nocturia once nightly. ENDOCRINE: Denies polyuria, polydipsia, heat or cold intolerance. NEUROLOGIC: No history of stroke, TIA, or vascular headaches. INTEGUMENT: No rash or itching, but does have easy bruisability. PSYCHIATRIC: Denies depressed mood. MUSCULOSKELETAL: Chronic arthralgias lumbar spine and he has bilateral stumps. PHYSICAL EXAMINATION: GENERAL: The patient is alert at this time in no acute distress. Height is 5 feet 5 inches. VITAL SIGNS: Blood pressure 131/60. Heart rate 18 and regular. She is afebrile. HEENT: Head is normocephalic. Eyes are clear. Pharynx unremarkable. NECK: No bruits or masses. CHEST: Clear. HEART: Regular with I/ systolic ejection murmur in the aortic area. ABDOMEN: Rotund, he is very tender in the right upper quadrant without rebound. Bowel sounds are hyperactive. RECTAL: Deferred. EXTREMITIES: He has bilateral AKAs with some nonhealing on the right in the suture line. NEUROLOGICAL: He is oriented to person, place, and time. No obvious motor deficits are appreciated. LABORATORY DATA: Revealed a white count of 5500, H&H of 9.7 and 30.3, which is his normal, platelet count of 152,000. Blood sugar is 170, potassium 4.6, sodium is 132, creatinine 1.61 and CO2 is normal at 21.6. UA was unremarkable. CT scan done emergently shows fluid around the gallbladder suggesting acute acalculous cholecystitis. ASSESSMENT: 1. Acute acalculous cholecystitis causing abdominal pain. 2. History of watermelon stomach with gastric ulcers. 3. History of coronary artery disease, clinically stable. 4. History of paroxysmal atrial fibrillation, currently in sinus rhythm. 5. Diabetes mellitus. 6. Osteoarthritis. 7. Hyperlipidemia. 8. Hypertension. 9. History of alcoholic cirrhosis. 10. Hypothyroidism. PLAN: After discussing with Dr. Will, who reviewed the CT, he recommends admission. The patient will be admitted and held n.p.o. for potential laparoscopic cholecystectomy this evening. His states he has been off of aspirin and all anticoagulants for sometime due to his risk of bleeding. TRANSINT:[id number] Voice Confirmation ID: [id number] DOCUMENT ID: [id number] HISTORY AND PHYSICAL [id number] GAVIN CLARK JR, TIMOTHY MD at 1057 CC: [id number] DICTATION DATE: 05/22/17 1402 PILLAR WORKER: 05/22/17 1735 ADM IN [place] [id number] [place] [address]
[2017-05-24 12:31] VITALS: BP 149/69
--- NOTE | 2017-05-24 18:15 | NUR ---
PATIENT RESTING IN THE BED. IN PATIENT'S ROOM. PATIENT HAS NOT WANTED TO EAT ANY OF HIS MEALS TODAY PER 'S STATEMENT. PATIENT DENIES THE NEED FOR ANY PAIN MEDICATION. NO NAUSEA OR VOMITING NOTED. PATIENT STATES HE JUST DOESN'T FEEL HUNGRY BECAUSE OF HIS BELLY. PATIENT DENIES ANY NEEDS AT PRESENT TIME. CALL LIGHT IN PATIENT'S REACH. WILL MONITOR.
[2017-05-24 18:22] VITALS: BP 132/64
--- NOTE | 2017-05-24 19:20 | NUR ---
RECIEVED SHIFT REPORT. PT IS LYING IN BED. ALERT AND ORIENTED AND ABLE TO VERBALIZE NEEDS. IV IS PATENT AND FLUIDS ARE RUNNING PER ORDER. PT REQUIRES MINIMAL ASSISTANCE TURNING IN BED FOR COMFORT AND SKIN CARE. PT DENIES ANY PAIN AT THIS TIME. LAP SITES TO ABDOMEN C/D/I. NO NEEDS ARE VERBALIZED AT THIS TIME. WILL CONTINUE TO MONITOR. IS AT THE BEDSIDE. SIDE RAILS ARE UP X 2. BED IS IN LOWEST POSITION. CALL LIGHT IS WITHIN REACH.
[2017-05-24 20:00] VITALS: BP 142/66
--- NOTE | 2017-05-24 20:47 | NUR ---
SHIFT ASSESSMENT COMPLETED. NIGHT MEDS GIVEN WITH NO PROBLEMS. NO NEEDS ARE VOICED. WILL MONITOR. SIDE RAILS X 2. BED LOW. CALL LIGHT IN REACH.
[2017-05-25 04:00] VITALS: BP 144/60
[2017-05-25 07:00] LABS: BASOPHILS 0 % (0-2); EOSINOPHILS 0.4 % (0-7); HEMOGLOBIN 8.9 g/dL (13.5-17.5); IMMATURE GRANULOCYTES 0.2 % (0-5); LYMPHOCYTES 9.3 % (15-50); MCH 29.8 pg (26.0-34.0); MCV 90.3 fL (80.0-100.0); MEAN PLATELET VOLUME 9.5 fL (7.4-10.4); MONOCYTES 10.7 % (2-11); NEUTROPHILS 79.4 % (40-80); RBC 2.99 10x6/uL (4.20-6.10); RDW 17.2 % (11.5-14.5)
[2017-05-25 07:18] LABS: ALBUMIN 1.8 g/dL (3.4-5.0); ANION GAP 15.8 mmol/L (8-16); BILIRUBIN - TOTAL 0.58 mg/dL (0.2-1.3); CALCIUM 7.9 mg/dL (8.5-10.1); CARBON DIOXIDE 17.4 mmol/L (21.0-32.0); CREATININE - SERUM 1.2 mg/dL (0.6-1.3); POTASSIUM - SERUM 4.2 mmol/L (3.5-5.1); PROTEIN - SERUM 5.2 g/dL (6.4-8.2)
[2017-05-25 07:19] LABS: PLATELET COUNT 123 10x3/uL (130-400); WBC 5.4 10x3/uL (4.8-10.8)
--- NOTE | 2017-05-25 08:15 | NUR ---
ASSESSMENT COMPLETE. IV TO L AC PATENT. BANDAIDS X 4 TO ABDOMEN. HISTORY OF BILAT BKA'S. INCONT OF BOWEL. AT BEDSIDE.
[2017-05-25 08:25] VITALS: BP 143/66
--- NOTE | 2017-05-25 10:20 | NUR ---
Patient Name: GAVIN CLARK Admission Status: Urgent Accout number: [id number] Admission Date: 05-22-2017 : 1940 Admission Diagnosis: Attending: JAMARCUS Current LOS: 3 Anticipated DC Date: 05-25-2017 Planned Disposition: Home Primary Insurance: MEDICARE A & B Discharge Planning Comments: CM MET WITH PATIENT AND (KARTHIK)REGARDING D/C NEEDS AND PLANS. PATIENT STATED HE LIVES WITH HIS AND SHE WILL DRIVE HIM HOME AT DISCHARGE. STATED THEY HAVE A RAMP AT HOME AND THEIR SON WILL HELP GET HIM OUT OF THE CAR. PATIENT IS BKA AND IS TOTAL CARE. STATED PATIENT HAS A HOSPITAL BED, SHOWER CHAIR, WHEELCHAIR, AND GLUCOMETER (CKS 2X DAY). PATIENTS PCP IS DR. YANG AND PHARMACY IS [facility]. PATIENTS SIGNED THE [employer]M FOR [employer]. CM WILL CONTINUE TO FOLLOW PATIENT WITH D/C NEEDS AND PLANS. PCP DR. ENGLISH [facility]. ON [address] [phone] KARTHIK () [phone] Transcribing Machine Mechanic: Shelley Crespo Is the patient Alert and Oriented? Yes 0 * How many steps to enter\exit or inside your home? RAMP 0 * PCP DR. YANG 0 * Pharmacy [facility]. ON [address] 0 * Preadmission Environment Home with Family 0 * ADLs Total Dependent 0 * Equipment Glucometer Hospital Bed Shower Chair Wheelchair 0 * List name and contact numbers for known caregivers / representatives who currently or will assist patient after discharge: KARTHIK [phone] * Community resources currently utilized None 0 * Additional services required to return to the preadmission environment? Yes 0 * Can the patient safely return to the preadmission environment? Yes 0 * Has this patient been hospitalized within the prior 30 days at any hospital? No 0 Grand Total: 0
[2017-05-25 12:53] VITALS: BP 135/63
--- NOTE | 2017-05-25 13:50 | NUR ---
NUTRITION MONITORING & EVAL CHART REVIEWED, PT VISIT. DIABETIC DIET WITH ~25% INTAKE LUNCH. SPOUSE AT BEDSIDE REPORTS +BM THIS DATE. RD FOLLOWING
--- NOTE | 2017-05-25 14:02 | NUR ---
RESTING QUIETLY WITH EYES CLOSED. RESP EVEN,NONLABORED.
[2017-05-25 15:57] VITALS: BP 143/61
--- NOTE | 2017-05-25 18:09 | NUR ---
NO CHANGES NOTED AT THIS TIME. RESTING QUIETLY IN BED. REDNESS NOTED TO BUTTOCKS. BUTT BALM IN USE.
--- NOTE | 2017-05-25 19:20 | NUR ---
REICEVED SHIFT REPORT. PT IS LYING IN BED. ALERT AND ORIENTED AND ABLE TO VERBALIZE NEEDS. IV IS PATENT AND FLUIDS ARE RUNNING PER ORDER. PT REQUIRES MINIMAL ASSISTANCE TURNING IN BED FOR COMFORT AND SKIN CARE. LAP SITES TO ABDOMEN C/D/I. PT DENIES ANY PAIN AT THIS TIME. NO NEEDS ARE VERBALIZED AT THIS TIME. WILL CONTINUE TO MONITOR. IS AT THE BEDSIDE. SIDE RAILS ARE UP X 2. BED IS IN LOWEST POSITION. CALL LIGHT IS WITHIN REACH.
[2017-05-25 20:00] VITALS: BP 143/53
--- NOTE | 2017-05-25 20:14 | NUR ---
SHIFT ASSESSMENT COMPLETED. NIGHT MEDS GIVEN WITH NO PROBLEMS. NO NEEDS ARE VOICED. WILL MONITOR. SIDE RAILS X 2. BED LOW. CALL LIGHT IN REACH.
[2017-05-26] VITALS: BP 159/72
[2017-05-26 03:48] LABS: BASOPHILS 0 % (0-2); EOSINOPHILS 0.5 % (0-7); HEMATOCRIT 26.2 % (42.0-54.0); HEMOGLOBIN 8.7 g/dL (13.5-17.5); IMMATURE GRANULOCYTES 0.2 % (0-5); LYMPHOCYTES 9.6 % (15-50); MCH 29.6 pg (26.0-34.0); MCHC 33.2 g/dL (31.0-37.0); MCV 89.1 fL (80.0-100.0); MEAN PLATELET VOLUME 9.3 fL (7.4-10.4); MONOCYTES 8.6 % (2-11); NEUTROPHILS 81.1 % (40-80); PLATELET COUNT 119 10x3/uL (130-400); RBC 2.94 10x6/uL (4.20-6.10); RDW 16.9 % (11.5-14.5); WBC 4.1 10x3/uL (4.8-10.8)
[2017-05-26 03:59] LABS: ANION GAP 15.3 mmol/L (8-16); CALCIUM 8.2 mg/dL (8.5-10.1); CARBON DIOXIDE 17.3 mmol/L (21.0-32.0); CREATININE - SERUM 1.1 mg/dL (0.6-1.3); POTASSIUM - SERUM 3.6 mmol/L (3.5-5.1)
[2017-05-26 04:00] VITALS: BP 149/70
--- NOTE | 2017-05-26 08:15 | NUR ---
PT AOX4 RESP EVEN AND NONLABORED PT DENIES NEEDS AT THIS TIME IV TO LEFT AC PATENT AND INTACT SRX2 BED AT LOWEST SETTING CALL LIGHT WITHIN REACH WILL CONTINUE TO MONITOR
[2017-05-26 08:17] VITALS: BP 144/64
[2017-05-26 12:01] VITALS: BP 160/64
[2017-05-26 15:58] VITALS: BP 163/73
--- NOTE | 2017-05-26 19:25 | NUR ---
RECIEVED SHIFT REPORT. PT IS LYING IN BED. ALERT AND ORIENTED AND ABLE TO VERBALIZE NEEDS. IV IS PATENT AND FLUIDS ARE RUNNING PER ORDER. PT STATES PAIN IS 7/10. PT REQUIRES MINIMAL ASSISTANCE TURNING IN BED FOR COMFORT AND SKIN CARE. NO NEEDS ARE VERBALIZED AT THIS TIME. AT BEDSIDE. WILL CONTINUE TO MONITOR. SIDE RAILS ARE UP X 2. BED IS IN LOWEST POSITION. CALL LIGHT IS WITHIN REACH.
[2017-05-26 20:00] VITALS: BP 135/67
--- NOTE | 2017-05-26 20:37 | NUR ---
SHIFT ASSESSMENT COMPLETED. NIGHT MEDS GIVEN WITH NO PROBLEMS. NO NEEDS VOICED. AT BEDSIDE. WILL MONITOR. SIDE RAILS X 2. BED LOW. CALL LIGHT IN REACH.
--- NOTE | 2017-05-26 23:05 | NUR ---
PRBC'S INITIATED AT THIS TIME. VSS. WILL MONITOR. SIDE RAILS X 2. BED LOW. CALL LIGHT IN REACH.
[2017-05-27 04:00] VITALS: BP 151/67
[2017-05-27 05:21] LABS: BASOPHILS 0 % (0-2); EOSINOPHILS 0.5 % (0-7); HEMATOCRIT 30.4 % (42.0-54.0); HEMOGLOBIN 10.1 g/dL (13.5-17.5); IMMATURE GRANULOCYTES 0.3 % (0-5); LYMPHOCYTES 11.5 % (15-50); MCH 29.2 pg (26.0-34.0); MCHC 33.2 g/dL (31.0-37.0); MCV 87.9 fL (80.0-100.0); MEAN PLATELET VOLUME 10.3 fL (7.4-10.4); MONOCYTES 11.3 % (2-11); NEUTROPHILS 76.4 % (40-80); PLATELET COUNT 138 10x3/uL (130-400); RBC 3.46 10x6/uL (4.20-6.10); RDW 16.7 % (11.5-14.5); WBC 3.6 10x3/uL (4.8-10.8)
--- NOTE | 2017-05-27 08:00 | NUR ---
IV LEAKING. D/C WITH CATHETER INTACT.
[2017-05-27] MEDS ORDERED: Levaquin PO (08:08)
--- NOTE | 2017-05-27 08:28 | NUR ---
CM REASSESSMENT NOTE: PATIENT IS DISCHARGING HOME TODAY WITH [facility]. PATIENTS IS DRIVING HIM HOME. PATIENT HAD NO OTHER NEEDS FOR DISCHARGE.
[2017-05-27 08:51] VITALS: BP 183/71
--- NOTE | 2017-05-27 10:46 | NUR ---
GAVE PATIENT A BATH
--- NOTE | 2017-05-27 10:46 | NUR ---
CALLED IN [facility]LL[facility] TO [facility], SPOKE WITH LANDON.
--- NOTE | 2017-05-27 12:53 | NUR ---
DISCHARGE INSTRUCTIONS COMPLETED WITH PATIENT AND HIS . BOTH DENY QUESTIONS.
== END 2017-05-27 13:00 | disposition home health service (06) | DRG 418 ==
LOC: D.CT 12:08 → D.SDCHOLD 13:47 → D.MS 13:47
PROVIDERS: Anesthesiology; Surgery; ADMIT Family Medicine
PROC: 0FB03ZX Excision of Liver, Percutaneous Approach, Diagnostic (ICD-10-PCS; 2017-05-22)
PROC: 0FT44ZZ Resection of Gallbladder, Percutaneous Endoscopic Approach (ICD-10-PCS; principal; 2017-05-22 17:15)
PROC: BF121ZZ Fluoroscopy of Gallbladder using Low Osmolar Contrast (ICD-10-PCS; 2017-05-22 17:15)
DX: K81.0 Acute cholecystitis (principal); N17.9 Acute kidney failure, unspecified; E11.22 Type 2 diabetes mellitus with diabetic chronic kidney disease; I12.9 Hypertensive chronic kidney disease with stage 1 through stage 4 chronic kidney disease, or unspecified chronic kidney disease; N18.9 Chronic kidney disease, unspecified; M19.90 Unspecified osteoarthritis, unspecified site; E78.5 Hyperlipidemia, unspecified; J40 Bronchitis, not specified as acute or chronic; E03.9 Hypothyroidism, unspecified; I25.10 Atherosclerotic heart disease of native coronary artery without angina pectoris; K70.30 Alcoholic cirrhosis of liver without ascites; I70.229 Atherosclerosis of native arteries of extremities with rest pain, unspecified extremity

== ENCOUNTER 2017-07-20 11:02 | Outpatient (CLI) | payer MEDICARE, OTHER ==
[~2017-07-20] VITALS: Ht 165.1 cm; Wt 63.6 kg
[~2017-07-20 11:02] MED LIST changes: +Levaquin PO
[2017-07-20 14:35] VITALS: BP 151/72; Ht 165.1 cm; Wt 63.6 kg
--- NOTE | 2017-07-20 15:00 | NUR ---
PRE MEDICATIONS GIVEN PER ORDERS. FIRST UNIT OF PRBC TRANSFUSING. PT RESTING COMFORTABLY WITH VSS. WILL MONITOR. SEE TRANSFUSION SHEET FOR VITAL SIGNS.
--- NOTE | 2017-07-20 16:00 | NUR ---
TRANSFUSION OF FIRST PRBC UNIT CONTINUES. VSS. WILL MONITOR.
--- NOTE | 2017-07-20 17:30 | NUR ---
1710- FIRST PRBC UNIT COMPLETE. VSS. DINNER TRAY CALLED FOR. 1720- SECOND UNIT OF PRBC STARTED. PT SITTING UP TO EAT DINNER. AT BEDSIDE. WILL CONTINUE TO MONITOR. 1730- REPORT GIVEN TO RUBEN Orozco RN.
--- NOTE | 2017-07-20 20:22 | NUR ---
1800 PT'S HAS GONE TO GET HIS HOME BLOOD PRESSURE MEDICATION. DENIES PROBLEMS, ATE SUPPER DIET. IV SITE PATENT BLOOD INFUSING WELL.
--- NOTE | 2017-07-20 20:23 | NUR ---
183 HAS RETURNED, GAVE PT. HIS EVENING BLOOD PRESSURE PILL. 1910 BLOOD COMPLETED LINE BEING FLUSHED WITH NS. 2014 POST V.S. TAKEN 2ND BP PILL GIVEN CLONIDINE 0.1MG HOME MED BY . DENIES PROBLEMS. IV DC'D WITH CATH INTACT. RELEASED IN WC [facility]NA [facility] HOME.
== END 2017-07-20 20:17 | disposition home or self-care (01) ==
LOC: D.OPS 11:02
DX: D64.9 Anemia, unspecified (principal)

== ENCOUNTER 2017-08-16 21:37 | Inpatient (IN) | payer MEDICARE, OTHER ==
[~2017-08-16] VITALS: Ht 165.1 cm; Wt 63.6 kg
[2017-08-17 13:45] VITALS: Ht 165.1 cm; Wt 63.6 kg
[2017-08-21] MEDS ORDERED: IPRAT-ALBUT 0.5-3 ML INH (07:45)
[2017-08-21] MEDS ORDERED: LEVAQUIN750 MG PO (07:47)
[2017-08-21 12:00] VITALS: BP 149/77
== END 2017-08-21 15:02 | disposition home health service (06) | DRG 194 ==
LOC: D.ER 21:37 → D.M2 23:51
PROVIDERS: ADMIT Family Medicine
DX: J18.9 Pneumonia, unspecified organism (principal); N17.9 Acute kidney failure, unspecified; C22.8 Malignant neoplasm of liver, primary, unspecified as to type; I48.92 Unspecified atrial flutter; D63.8 Anemia in other chronic diseases classified elsewhere; Z66 Do not resuscitate; I73.9 Peripheral vascular disease, unspecified; I12.9 Hypertensive chronic kidney disease with stage 1 through stage 4 chronic kidney disease, or unspecified chronic kidney disease; N18.9 Chronic kidney disease, unspecified; K74.60 Unspecified cirrhosis of liver; I25.10 Atherosclerotic heart disease of native coronary artery without angina pectoris; Z89.512 Acquired absence of left leg below knee; Z89.511 Acquired absence of right leg below knee; E03.9 Hypothyroidism, unspecified; E78.5 Hyperlipidemia, unspecified; I48.0 Paroxysmal atrial fibrillation; E11.22 Type 2 diabetes mellitus with diabetic chronic kidney disease

== ENCOUNTER 2017-10-09 09:08 | Outpatient (CLI) | payer MEDICARE, OTHER ==
[~2017-10-09 09:08] MED LIST changes: +IPRAT-ALBUT 0.5-3 ML INH; +LEVAQUIN750 MG PO
[2017-10-09 12:11] VITALS: BP 150/43; BMI 23.3
--- NOTE | 2017-10-09 17:42 | NUR ---
1740--IV DC'D. DISCHARGE INSTRUCTIONS GIVEN, PT VERBALIZES UNDERSTANDING. PT OFF UNIT VIA WC. ASHLYN JOSEPH
== END 2017-10-09 17:40 | disposition home or self-care (01) ==
LOC: D.OPS 09:08
DX: D64.9 Anemia, unspecified (principal)

== ENCOUNTER → 2017-10-30 09:59 | Outpatient (CLI) | payer MEDICARE, OTHER ==
[2017-10-09 12:11] VITALS: BMI 23.3
== END | disposition home or self-care (01) ==
LOC: D.US 09:59
DX: C22.8 Malignant neoplasm of liver, primary, unspecified as to type (principal)

== ENCOUNTER 2017-11-18 11:52 | Outpatient (CLI) | payer MEDICARE, OTHER ==
--- NOTE | 2017-11-18 14:00 | NUR ---
FIRST UNIT OF PRBC'S STARTED AT 75ML/HR VIA PUMP THROUGH BLOOD FILTER TUBING AND NS.
[2017-11-18 14:53] VITALS: BP 125/60; Ht 165.1 cm
== END 2017-11-18 19:10 | disposition home or self-care (01) ==
LOC: D.OPS 11:52
DX: D64.9 Anemia, unspecified (principal)

== ENCOUNTER 2017-12-01 14:38 | Outpatient (CLI) | payer MEDICARE, OTHER ==
[2017-12-16 14:18] VITALS: BMI 24.6
== END 2017-12-01 23:59 | disposition home or self-care (01) ==
LOC: D.LAB 14:38
DX: D50.9 Iron deficiency anemia, unspecified (principal)

== ENCOUNTER → 2017-12-08 11:31 | Outpatient (CLI) | payer MEDICARE, OTHER ==
[2017-12-08 12:50] LABS: BASOPHILS 0.2 % (0-2); EOSINOPHILS 0.5 % (0-7); HEMATOCRIT 22.6 % (42.0-54.0); IMMATURE GRANULOCYTES 0.2 % (0-5); LYMPHOCYTES 11.2 % (15-50); MCH 28.6 pg (26.0-34.0); MCHC 32.3 g/dL (31.0-37.0); MCV 88.6 fL (80.0-100.0); MEAN PLATELET VOLUME 9.4 fL (7.4-10.4); NEUTROPHILS 76.9 % (40-80); PLATELET COUNT 133 10x3/uL (130-400); RBC 2.55 10x6/uL (4.20-6.10); RDW 15.8 % (11.5-14.5); WBC 4.4 10x3/uL (4.8-10.8)
[2017-12-08 12:57] LABS: HEMOGLOBIN 7.3 g/dL (13.5-17.5)
== END | disposition home or self-care (01) ==
LOC: D.LAB 11:31
PROVIDERS: Legal Medicine
DX: C22.0 Liver cell carcinoma (principal); D50.9 Iron deficiency anemia, unspecified

== ENCOUNTER → 2017-12-16 10:14 | Outpatient (CLI) | payer MEDICARE, OTHER ==
[2017-12-16 11:42] LABS: BASOPHILS 0.3 % (0-2); EOSINOPHILS 0.5 % (0-7); HEMATOCRIT 20.9 % (42.0-54.0); LYMPHOCYTES 13.2 % (15-50); MCH 27.2 pg (26.0-34.0); MCHC 30.6 g/dL (31.0-37.0); MCV 88.9 fL (80.0-100.0); MEAN PLATELET VOLUME 10.3 fL (7.4-10.4); MONOCYTES 10.1 % (2-11); NEUTROPHILS 75.9 % (40-80); PLATELET COUNT 120 10x3/uL (130-400); RBC 2.35 10x6/uL (4.20-6.10); RDW 15.6 % (11.5-14.5); WBC 3.9 10x3/uL (4.8-10.8)
[2017-12-16 11:54] LABS: HEMOGLOBIN 6.4 g/dL (13.5-17.5)
== END | disposition home or self-care (01) ==
LOC: D.LABREF 10:14
PROVIDERS: Legal Medicine
DX: E11.51 Type 2 diabetes mellitus with diabetic peripheral angiopathy without gangrene (principal)

== ENCOUNTER 2017-12-16 12:54 | Outpatient (CLI) | payer MEDICARE, OTHER ==
[~2017-12-16] VITALS: Ht 165.1 cm; Wt 67.3 kg
[2017-12-16 14:18] VITALS: BP 155/87; Ht 165.1 cm; Wt 67.3 kg
== END 2017-12-16 20:32 | disposition home or self-care (01) ==
LOC: D.OPS 12:54
DX: D64.9 Anemia, unspecified (principal)

== ENCOUNTER → 2017-12-28 12:01 | Outpatient (CLI) | payer MEDICARE, OTHER ==
[2017-12-16 14:18] VITALS: BMI 24.6
[2017-12-28 12:59] LABS: BASOPHILS 0.2 % (0-2); HEMATOCRIT 27.8 % (42.0-54.0); HEMOGLOBIN 8.8 g/dL (13.5-17.5); IMMATURE GRANULOCYTES 0.2 % (0-5); LYMPHOCYTES 14.3 % (15-50); MCH 28.3 pg (26.0-34.0); MCHC 31.7 g/dL (31.0-37.0); MCV 89.4 fL (80.0-100.0); MEAN PLATELET VOLUME 10.3 fL (7.4-10.4); MONOCYTES 8.7 % (2-11); NEUTROPHILS 75.6 % (40-80); PLATELET COUNT 121 10x3/uL (130-400); RBC 3.11 10x6/uL (4.20-6.10); RDW 16.5 % (11.5-14.5); WBC 4.1 10x3/uL (4.8-10.8)
== END | disposition home or self-care (01) ==
LOC: D.LABREF 12:01
PROVIDERS: Legal Medicine
DX: C22.0 Liver cell carcinoma (principal); D50.9 Iron deficiency anemia, unspecified

== ENCOUNTER → 2018-01-04 13:02 | Outpatient (CLI) | payer MEDICARE, OTHER ==
[2017-12-16 14:18] VITALS: BMI 24.6
[2018-01-04 14:31] LABS: BASOPHILS 0.2 % (0-2); EOSINOPHILS 0.6 % (0-7); HEMATOCRIT 29.7 % (42.0-54.0); HEMOGLOBIN 9.5 g/dL (13.5-17.5); IMMATURE GRANULOCYTES 0.2 % (0-5); LYMPHOCYTES 12.3 % (15-50); MCV 87.6 fL (80.0-100.0); MEAN PLATELET VOLUME 10.6 fL (7.4-10.4); MONOCYTES 6.7 % (2-11); RBC 3.39 10x6/uL (4.20-6.10); WBC 5.1 10x3/uL (4.8-10.8)
[2018-01-04 14:33] LABS: PLATELET COUNT 89 10x3/uL (130-400)
[2018-01-04 15:15] LABS: PLATELET ESTIMATE DECREASED
== END | disposition home or self-care (01) ==
LOC: D.LABREF 13:02
PROVIDERS: Legal Medicine
DX: C22.0 Liver cell carcinoma (principal); D50.9 Iron deficiency anemia, unspecified

== ENCOUNTER → 2018-01-31 21:33 | Outpatient (CLI) | payer MEDICARE, OTHER ==
[2018-01-16 13:14] VITALS: BMI 24.7
[~2018-01-31 21:33] MED LIST changes: +CARAFATE1 G PO; +ENDOCET 10-3251 TAB PO; +IOPHEN-C NR LI473 ML PO; +LOMOTIL TABLET1 TAB PO; +NEXAVAR200 MG PO
== END | disposition home or self-care (01) ==
LOC: D.LABREF 21:33
DX: R19.7 Diarrhea, unspecified (principal)

== ENCOUNTER → 2018-02-16 12:23 | Outpatient (CLI) | payer MEDICARE, OTHER ==
[2018-01-16 13:14] VITALS: BMI 24.7
== END | disposition home or self-care (01) ==
LOC: D.RAD 12:23
DX: J90 Pleural effusion, not elsewhere classified (principal)

== ENCOUNTER → 2018-02-22 14:51 | Outpatient (CLI) | payer MEDICARE, OTHER ==
[2018-01-16 13:14] VITALS: BMI 24.7
[2018-02-22 15:43] LABS: BASOPHILS 0 % (0-2); EOSINOPHILS 1.3 % (0-7); HEMATOCRIT 27.6 % (42.0-54.0); HEMOGLOBIN 8.8 g/dL (13.5-17.5); IMMATURE GRANULOCYTES 0.3 % (0-5); LYMPHOCYTES 11.5 % (15-50); MCH 29.1 pg (26.0-34.0); MCHC 31.9 g/dL (31.0-37.0); MCV 91.4 fL (80.0-100.0); MEAN PLATELET VOLUME 10.3 fL (7.4-10.4); MONOCYTES 7.9 % (2-11); RBC 3.02 10x6/uL (4.20-6.10); RDW 19.1 % (11.5-14.5); WBC 3.8 10x3/uL (4.8-10.8)
[2018-02-22 15:55] LABS: PLATELET COUNT 94 10x3/uL (130-400)
== END | disposition home or self-care (01) ==
LOC: D.LABREF 14:51
PROVIDERS: Legal Medicine
DX: C22.8 Malignant neoplasm of liver, primary, unspecified as to type (principal); I12.9 Hypertensive chronic kidney disease with stage 1 through stage 4 chronic kidney disease, or unspecified chronic kidney disease; I48.0 Paroxysmal atrial fibrillation

== ENCOUNTER → 2018-03-01 12:13 | Outpatient (CLI) | payer MEDICARE, OTHER ==
[2018-01-16 13:14] VITALS: BMI 24.7
[2018-03-01 12:42] LABS: HEMATOCRIT 28.5 % (42.0-54.0); HEMOGLOBIN 9.1 g/dL (13.5-17.5); MCH 28.8 pg (26.0-34.0); MCHC 31.9 g/dL (31.0-37.0); MCV 90.2 fL (80.0-100.0); MEAN PLATELET VOLUME 10.6 fL (7.4-10.4); PLATELET COUNT 84 10x3/uL (130-400); RBC 3.16 10x6/uL (4.20-6.10); RDW 18.3 % (11.5-14.5); WBC 2.8 10x3/uL (4.8-10.8)
[2018-03-01 14:15] LABS: ANISOCYTOSIS OCC; EOSINOPHILS 4 % (0-7); HYPOCHROMASIA OCC; LYMPHOCYTES 16 % (15-50); MONOCYTES 7 % (2-11); NEUTROPHILS 68 % (40-80); PLATELET ESTIMATE DECREASED; ROULEAUX OCC
== END | disposition home or self-care (01) ==
LOC: D.LABREF 12:13
PROVIDERS: Family Medicine
DX: E11.51 Type 2 diabetes mellitus with diabetic peripheral angiopathy without gangrene (principal); C22.8 Malignant neoplasm of liver, primary, unspecified as to type

== ENCOUNTER → 2018-03-09 12:15 | Outpatient (CLI) | payer MEDICARE, OTHER ==
[2018-01-16 13:14] VITALS: BMI 24.7
[2018-03-09 13:35] LABS: BASOPHILS 0.4 % (0-2); EOSINOPHILS 0.7 % (0-7); HEMATOCRIT 24.3 % (42.0-54.0); MCH 28.6 pg (26.0-34.0); MCHC 30.9 g/dL (31.0-37.0); MCV 92.7 fL (80.0-100.0); MEAN PLATELET VOLUME 11.2 fL (7.4-10.4); MONOCYTES 6.2 % (2-11); NEUTROPHILS 77.7 % (40-80); RBC 2.62 10x6/uL (4.20-6.10); RDW 18.1 % (11.5-14.5); WBC 2.7 10x3/uL (4.8-10.8)
[2018-03-09 14:23] LABS: HEMOGLOBIN 7.5 g/dL (13.5-17.5); PLATELET COUNT 66 10x3/uL (130-400)
== END | disposition home or self-care (01) ==
LOC: D.LABREF 12:15
PROVIDERS: Legal Medicine
DX: C22.8 Malignant neoplasm of liver, primary, unspecified as to type (principal); D50.9 Iron deficiency anemia, unspecified; C22.0 Liver cell carcinoma

== ENCOUNTER → 2018-03-16 14:30 | Outpatient (CLI) | payer MEDICARE, OTHER ==
[2018-01-16 13:14] VITALS: BMI 24.7
[2018-03-16 15:12] LABS: BASOPHILS 0.3 % (0-2); HEMATOCRIT 23.1 % (42.0-54.0); LYMPHOCYTES 12.7 % (15-50); MCH 28.5 pg (26.0-34.0); MCHC 30.7 g/dL (31.0-37.0); MCV 92.8 fL (80.0-100.0); MEAN PLATELET VOLUME 10.7 fL (7.4-10.4); PLATELET COUNT 68 10x3/uL (130-400); RBC 2.49 10x6/uL (4.20-6.10); RDW 17.4 % (11.5-14.5)
[2018-03-16 15:16] LABS: HEMOGLOBIN 7.1 g/dL (13.5-17.5)
== END | disposition home or self-care (01) ==
LOC: D.LABREF 14:30
PROVIDERS: Legal Medicine
DX: C22.0 Liver cell carcinoma (principal); D50.9 Iron deficiency anemia, unspecified

== ENCOUNTER 2018-03-17 11:41 | Outpatient (CLI) | payer MEDICARE, OTHER ==
[~2018-03-17] VITALS: Ht 165.1 cm; Wt 66.4 kg
[2018-03-17 15:58] VITALS: BP 124/78; Ht 165.1 cm; Wt 66.4 kg
[2018-03-17 19:58] LABS: BASOPHILS 0.3 % (0-2); EOSINOPHILS 1.8 % (0-7); LYMPHOCYTES 11.3 % (15-50); MCH 29.6 pg (26.0-34.0); MCHC 32.6 g/dL (31.0-37.0); MEAN PLATELET VOLUME 10.8 fL (7.4-10.4); MONOCYTES 7.4 % (2-11); NEUTROPHILS 79.2 % (40-80); RDW 16.1 % (11.5-14.5)
[2018-03-17 20:05] LABS: HEMATOCRIT 30.7 % (42.0-54.0); MCV 90.8 fL (80.0-100.0); PLATELET COUNT 82 10x3/uL (130-400); RBC 3.38 10x6/uL (4.20-6.10); WBC 3.8 10x3/uL (4.8-10.8)
[2018-03-17 20:34] LABS: PLATELET ESTIMATE DECREASED
== END 2018-03-17 19:45 | disposition home or self-care (01) ==
LOC: D.OPS 11:41
PROVIDERS: Family Medicine
DX: D64.9 Anemia, unspecified (principal); J90 Pleural effusion, not elsewhere classified

== ENCOUNTER → 2018-03-23 11:53 | Outpatient (CLI) | payer MEDICARE, OTHER ==
[2018-03-17 15:58] VITALS: BMI 24.3
[2018-03-23 12:26] LABS: BASOPHILS 0.2 % (0-2); EOSINOPHILS 1.2 % (0-7); HEMATOCRIT 31.7 % (42.0-54.0); LYMPHOCYTES 11.8 % (15-50); MCH 29.4 pg (26.0-34.0); MCHC 31.5 g/dL (31.0-37.0); MCV 93.2 fL (80.0-100.0); MEAN PLATELET VOLUME 10.6 fL (7.4-10.4); MONOCYTES 4.8 % (2-11); PLATELET COUNT 85 10x3/uL (130-400); RDW 16.4 % (11.5-14.5); WBC 4.2 10x3/uL (4.8-10.8)
== END | disposition home or self-care (01) ==
LOC: D.LABREF 11:53
PROVIDERS: Legal Medicine
DX: C22.8 Malignant neoplasm of liver, primary, unspecified as to type (principal); I25.10 Atherosclerotic heart disease of native coronary artery without angina pectoris; E11.51 Type 2 diabetes mellitus with diabetic peripheral angiopathy without gangrene

== ENCOUNTER → 2018-03-30 14:17 | Outpatient (CLI) | payer MEDICARE, OTHER ==
[2018-03-17 15:58] VITALS: BMI 24.3
[2018-03-30 14:59] LABS: BASOPHILS 0 % (0-2); EOSINOPHILS 1.7 % (0-7); HEMATOCRIT 27.6 % (42.0-54.0); HEMOGLOBIN 8.8 g/dL (13.5-17.5); IMMATURE GRANULOCYTES 0.2 % (0-5); LYMPHOCYTES 12.4 % (15-50); MCH 29.3 pg (26.0-34.0); MCHC 31.9 g/dL (31.0-37.0); MEAN PLATELET VOLUME 11.4 fL (7.4-10.4); MONOCYTES 5.7 % (2-11); PLATELET COUNT 69 10x3/uL (130-400); RDW 16.6 % (11.5-14.5); WBC 4.2 10x3/uL (4.8-10.8)
== END | disposition home or self-care (01) ==
LOC: D.LABREF 14:17
PROVIDERS: Legal Medicine
DX: D64.9 Anemia, unspecified (principal); E11.9 Type 2 diabetes mellitus without complications

== ENCOUNTER → 2018-04-06 10:13 | Outpatient (CLI) | payer MEDICARE, OTHER ==
[2018-03-17 15:58] VITALS: BMI 24.3
[2018-04-06 15:52] LABS: BASOPHILS 0 % (0-2); EOSINOPHILS 1.6 % (0-7); HEMATOCRIT 21.8 % (42.0-54.0); LYMPHOCYTES 8.7 % (15-50); MCH 29.2 pg (26.0-34.0); MCHC 32.1 g/dL (31.0-37.0); MCV 90.8 fL (80.0-100.0); MEAN PLATELET VOLUME 10.8 fL (7.4-10.4); MONOCYTES 6.9 % (2-11); NEUTROPHILS 82.8 % (40-80); PLATELET COUNT 70 10x3/uL (130-400); RDW 16.9 % (11.5-14.5); WBC 3.8 10x3/uL (4.8-10.8)
== END | disposition home or self-care (01) ==
LOC: D.CT 10:13
PROVIDERS: Legal Medicine
DX: C22.0 Liver cell carcinoma (principal); E11.9 Type 2 diabetes mellitus without complications; D50.9 Iron deficiency anemia, unspecified

== ENCOUNTER 2018-04-07 10:30 | Outpatient (CLI) | payer MEDICARE, OTHER ==
[~2018-04-07] VITALS: Ht 165.1 cm; Wt 63.6 kg
[2018-04-07 13:31] VITALS: BP 148/57; Ht 165.1 cm; Wt 63.6 kg
== END 2018-04-07 16:40 | disposition home or self-care (01) ==
LOC: D.OPS 10:30
DX: D64.9 Anemia, unspecified (principal)

== ENCOUNTER → 2018-04-09 16:19 | Outpatient (CLI) | payer MEDICARE, OTHER ==
[2018-04-07 13:31] VITALS: BMI 23.3
[2018-04-26 17:07] LABS: AEROBE ID Preliminary report (()); RESULT 1 Gram positive cocci (())
== END | disposition home or self-care (01) ==
LOC: D.LABREF 16:19 → D.LAB 16:19
PROVIDERS: Otolaryngology
DX: K12.2 Cellulitis and abscess of mouth (principal)

== ENCOUNTER → 2018-04-13 14:11 | Outpatient (CLI) | payer MEDICARE, OTHER ==
[2018-04-07 13:31] VITALS: BMI 23.3
[2018-04-13 15:17] LABS: BASOPHILS 0.2 % (0-2); EOSINOPHILS 1.8 % (0-7); HEMATOCRIT 30.2 % (42.0-54.0); HEMOGLOBIN 9.8 g/dL (13.5-17.5); IMMATURE GRANULOCYTES 0.2 % (0-5); LYMPHOCYTES 9.7 % (15-50); MCH 29.2 pg (26.0-34.0); MCHC 32.5 g/dL (31.0-37.0); MCV 89.9 fL (80.0-100.0); MEAN PLATELET VOLUME 11.4 fL (7.4-10.4); MONOCYTES 6.3 % (2-11); NEUTROPHILS 81.8 % (40-80); RBC 3.36 10x6/uL (4.20-6.10); RDW 16.7 % (11.5-14.5); WBC 4.4 10x3/uL (4.8-10.8)
[2018-04-13 15:18] LABS: PLATELET COUNT 88 10x3/uL (130-400)
[2018-04-13 15:34] LABS: PLATELET ESTIMATE DECREASED
== END | disposition home or self-care (01) ==
LOC: D.LABREF 14:11
PROVIDERS: Legal Medicine
DX: C22.8 Malignant neoplasm of liver, primary, unspecified as to type (principal); I25.10 Atherosclerotic heart disease of native coronary artery without angina pectoris; K70.30 Alcoholic cirrhosis of liver without ascites; E11.22 Type 2 diabetes mellitus with diabetic chronic kidney disease

== ENCOUNTER 2018-04-29 11:56 | Outpatient (CLI) | payer MEDICARE, OTHER ==
[~2018-04-29] VITALS: Ht 165.1 cm
[2018-04-29 13:47] VITALS: BP 139/66; Ht 165.1 cm
== END 2018-04-29 17:10 | disposition home or self-care (01) ==
LOC: D.OPS 11:56
DX: D64.9 Anemia, unspecified (principal)

== ENCOUNTER 2018-05-10 10:25 | Outpatient (CLI) | payer MEDICARE, OTHER ==
[~2018-05-10] VITALS: Ht 165.1 cm; Wt 61.4 kg
[2018-05-10 10:49] LABS: BASOPHILS 0 % (0-2); EOSINOPHILS 1.4 % (0-7); HEMATOCRIT 23.9 % (42.0-54.0); HEMOGLOBIN 7.7 g/dL (13.5-17.5); IMMATURE GRANULOCYTES 0.3 % (0-5); LYMPHOCYTES 10.7 % (15-50); MCH 30.3 pg (26.0-34.0); MCHC 32.2 g/dL (31.0-37.0); MCV 94.1 fL (80.0-100.0); MEAN PLATELET VOLUME 10.9 fL (7.4-10.4); MONOCYTES 7.8 % (2-11); NEUTROPHILS 79.8 % (40-80); PLATELET COUNT 74 10x3/uL (130-400); RBC 2.54 10x6/uL (4.20-6.10); RDW 17.9 % (11.5-14.5); WBC 3.5 10x3/uL (4.8-10.8)
[2018-05-10 11:12] LABS: ANION GAP 13.3 mmol/L (8-16); CALCIUM 8.1 mg/dL (8.5-10.1); CARBON DIOXIDE 24.3 mmol/L (21.0-32.0); CREATININE - SERUM 2.2 mg/dL (0.6-1.3); POTASSIUM - SERUM 4.6 mmol/L (3.5-5.1)
[2018-05-10 11:14] LABS: APTT 38.9 SECONDS (22.8-39.4); INR 1.19 (0.85-1.17); PROTIME 14.7 SECONDS (11.6-15.0)
[2018-05-10 11:17] LABS: PLATELET ESTIMATE DECREASED
[2018-05-10] MEDS ORDERED: PROVENTIL/2.5 MG/3 M INH (12:31)
[2018-05-10 12:35] VITALS: Ht 165.1 cm; Wt 61.4 kg
== END 2018-05-10 18:45 | disposition home or self-care (01) ==
LOC: D.SP 10:25 → D.CT 10:25 → D.OPS 10:25 → D.SP 14:15 → D.CT 15:00 → D.OPS 18:45
PROVIDERS: Specialist
DX: J90 Pleural effusion, not elsewhere classified (principal); Z01.812 Encounter for preprocedural laboratory examination

== ENCOUNTER 2018-05-11 08:12 | Outpatient (CLI) | payer MEDICARE, OTHER ==
[~2018-05-11] VITALS: Ht 165.1 cm; Wt 61.4 kg
[~2018-05-11 08:12] MED LIST changes: +PROVENTIL/2.5 MG/3 M INH
[2018-05-11 08:36] LABS: BASOPHILS 0.2 % (0-2); LYMPHOCYTES 10.4 % (15-50); MCH 29.7 pg (26.0-34.0); MCHC 33.8 g/dL (31.0-37.0); MEAN PLATELET VOLUME 10.4 fL (7.4-10.4); MONOCYTES 8.7 % (2-11); NEUTROPHILS 79.7 % (40-80); PLATELET COUNT 67 10x3/uL (130-400); RDW 20.8 % (11.5-14.5)
[2018-05-11 08:38] LABS: HEMATOCRIT 30.2 % (42.0-54.0); HEMOGLOBIN 10.2 g/dL (13.5-17.5); MCV 87.8 fL (80.0-100.0); RBC 3.44 10x6/uL (4.20-6.10)
[2018-05-11 08:45] LABS: INR 1.3 (0.85-1.17); PROTIME 15.7 SECONDS (11.6-15.0)
[2018-05-11 08:46] LABS: APTT 36.1 SECONDS (22.8-39.4)
[2018-05-11 09:04] LABS: ANION GAP 13.9 mmol/L (8-16); CALCIUM 8.2 mg/dL (8.5-10.1); CARBON DIOXIDE 24.2 mmol/L (21.0-32.0); POTASSIUM - SERUM 4.1 mmol/L (3.5-5.1)
[2018-05-11 09:11] VITALS: Ht 165.1 cm; Wt 61.4 kg
== END 2018-05-11 16:50 | disposition home or self-care (01) ==
LOC: D.SP 08:12 → D.CT 11:00 → D.SP 16:50
PROVIDERS: Radiology Diagnostic Radiology
DX: J90 Pleural effusion, not elsewhere classified (principal); Z01.812 Encounter for preprocedural laboratory examination

== ENCOUNTER 2018-05-28 06:51 | Outpatient (CLI) | payer MEDICARE, OTHER ==
[~2018-05-28] VITALS: Ht 165.1 cm; Wt 63.6 kg
[2018-05-28 07:08] LABS: BASOPHILS 0.2 % (0-2); EOSINOPHILS 1.2 % (0-7); HEMATOCRIT 25.4 % (42.0-54.0); HEMOGLOBIN 8.1 g/dL (13.5-17.5); IMMATURE GRANULOCYTES 0.2 % (0-5); LYMPHOCYTES 9.3 % (15-50); MCH 29.5 pg (26.0-34.0); MCHC 31.9 g/dL (31.0-37.0); MCV 92.4 fL (80.0-100.0); MEAN PLATELET VOLUME 10.8 fL (7.4-10.4); MONOCYTES 8.4 % (2-11); NEUTROPHILS 80.7 % (40-80); RBC 2.75 10x6/uL (4.20-6.10); RDW 19.8 % (11.5-14.5); WBC 4.3 10x3/uL (4.8-10.8)
[2018-05-28 07:17] LABS: PLATELET COUNT 88 10x3/uL (130-400)
[2018-05-28 07:30] LABS: ANION GAP 14.2 mmol/L (8-16); CALCIUM 8.3 mg/dL (8.5-10.1); CARBON DIOXIDE 26.4 mmol/L (21.0-32.0); CREATININE - SERUM 2.7 mg/dL (0.6-1.3); POTASSIUM - SERUM 4.6 mmol/L (3.5-5.1)
[2018-05-28 07:57] VITALS: Ht 165.1 cm; Wt 63.6 kg
[2018-05-28 08:09] LABS: APTT 40.4 SECONDS (22.8-39.4); INR 1.29 (0.85-1.17); PROTIME 15.7 SECONDS (11.6-15.0)
== END 2018-05-28 16:30 | disposition home or self-care (01) ==
LOC: D.RAD 06:51 → D.OPS 06:51 → D.RAD 09:00 → D.OPS 16:30
PROVIDERS: Specialist
DX: J90 Pleural effusion, not elsewhere classified (principal); E11.9 Type 2 diabetes mellitus without complications; Z01.812 Encounter for preprocedural laboratory examination

== ENCOUNTER 2018-07-01 11:35 | Outpatient (CLI) | payer MEDICARE, OTHER ==
[~2018-07-01] VITALS: Ht 165.1 cm; Wt 59.1 kg
[2018-07-01 13:47] VITALS: BP 113/69; Ht 165.1 cm; Wt 59.1 kg
== END 2018-07-01 16:30 | disposition home or self-care (01) ==
LOC: D.OPS 11:35
DX: D50.9 Iron deficiency anemia, unspecified (principal); Z01.812 Encounter for preprocedural laboratory examination

== ENCOUNTER 2018-07-06 07:30 | Outpatient (CLI) | payer MEDICARE, OTHER ==
[~2018-07-06] VITALS: Ht 165.1 cm; Wt 59.1 kg
--- NOTE | ~2018-07-06 | HEMODYNAMI ---
PATIENT:GAVIN CLARK JR MEDICAL RECORD: [id number] : [birth year] [id number] ADMISSION DATE: 07/06/18 Generatedon:07/06/201811:58 Patient name: GAVIN CLARK Patient #: [id number] SSN: Antonio OB: 1940 Date of study: 07/06/2018 Page: Of Hemodynamic Procedure Report Patient Data Patient Demographics Procedure consent was obtained First Name: AGVIN Gender: Male Last Name: EDUARDO Suffix: Patient #: [id number] : 1940 Age: 78 year(s) Accession #: Race: Unknown [id number] Additional ID: [id number] Contact details Address: [address] [place] [address] ROAD State: [place] City: [facility] [place] Zip code: [address] Past Medical History Allergies Allergen Reaction Date Comments Reported Other allergy 11/14/2015 PROTONIX Admission Admission Data Admission Date: 07/06/2018 Admission Time: 7:30 Height (in.): 65 BSA: 1.65 (m2) Height (cm.): 165.1 BMI: 21.63 (kg/m2) Weight (lbs.): 130 Weight (kg.): 58.97 Procedure Procedure Types Cath Procedure Peripheral Cath Diagnostic Procedure Cath Peripheral Miscellaneous Pleurex Pleurex Cath Place w/ Imaging Procedure Description Procedure Date Procedure Date: 07/06/2018 Procedure Start Time: 11:24 Procedure Staff Name Function Linnette Robles RT Mortgage Loan Closer Domenico Sousa MD Performing Physician Megan Ramos RN Nurse Rainer Ferrell RT Scrub Procedure Data Cath Procedure Fluoroscopy Diagnostic fluoroscopy Total fluoroscopy Time: 0.3 time: 0.3 min min Diagnostic fluoroscopy Total fluoroscopy dose: 9 dose: 9 mGy mGy Procedure Medications Medication Administration Route Dosage Ancef (1Gm/50ml NS) I.V.P.B 2 Oxygen etCO2 Nasal cannula 4 l/min Lidocaine 1% added to field 20 Heparin Flush Bag added to field 1 bags (1000units/500ml NS) Versed I.V. 0.5 mg Fentanyl I.V. 25 mcg Versed I.V. 0.5 mg Fentanyl I.V. 25 mcg Hemodynamics Rest BSA: 1.65 (m2) O2 Consumption: Estimated: 183.15 (ml/min) O2 Consumption indexed : Estimated:111 (ml/min/m) Heart Rate: 60 (bpm) Snapshots Pre Cath Intra NCS Post Cath Vital Signs Time Heart Resp SPO2 etCO2 NIBP (mmHg) Rhythm Pain Sedation Rate (ipm) (%) (mmHg) Status Level (bpm) 11:05:05 60 11 100 26.3 155/82(117) NSR 0 (11) 10(A) , No pain 11:09:21 60 19 95 27 164/83(126) NSR 0 (11) 10(A) , No pain 11:13:41 60 22 100 24 151/77(118) NSR 0 (11) 10(A) , No pain 11:17:53 95 18 100 26.3 155/86(138) NSR 0 (11) 9(A) , No pain 11:22:09 60 19 100 24.8 166/80(116) NSR 0 (11) 9(A) , No pain 11:26:27 59 28 26.3 161/83(126) SB 0 (11) 8(A) , No pain 11:30:45 59 27 100 26.3 142/78(109) SB 0 (11) 8(A) , No pain 11:34:57 58 12 100 21 138/73(105) SB 0 (11) 8(A) , No pain 11:39:07 59 16 100 18.8 139/77(117) SB 0 (11) 8(A) , No pain 11:43:21 59 12 100 12.7 134/73(105) SB 0 (11) 8(A) , No pain 11:47:37 58 16 100 21 90/53(80) SB 0 (11) 8(A) , No pain 11:51:36 58 12 100 21 92/53(70) SB 0 (11) 8(A) , No pain 11:55:36 59 12 99 15.8 105/57(88) SB 0 (11) 8(A) , No pain 11:56:48 59 14 98 18 105/59(90) SB 0 (11) 8(A) , No pain Medications Time Medication Route Dose Verified Delivered Reason Notes Effec tiveness by by 11:16:18 Ancef (1Gm/50ml I.V.P.B 2G Domenico Guzman Per NS) Lars Ramos RN protocol 11:16:41 Oxygen etCO2 4 Domenico Guzman Per Nasal l/min Lars Ramos RN protocol cannula 11:17:24 Lidocaine 1% added 20ml Domenico Acuña Per to vial Lars granados MD, MD 11:18:15 Heparin Flush added 1 Domenico Acuña Per Bag to bags Lars hope (1000units/500ml field MD DUARTE NS) 11:24:32 Versed I.V. 0.5 Domenico Guzman for Dozin g mg Lars Ramos RN sedation intermittently MD @ 11:29:23 11:25:00 Fentanyl I.V. 25 Domenico Guzman for Dozin g mcg Lars Ramos RN sedation intermittently MD @ 11:29:19 11:28:57 Versed I.V. 0.5 Domenico Guzman for mg Lars Ramos RN sedation 11:29:07 Fentanyl I.V. 25 Domenico Guzman for mcg Lars Ramos RN sedation Procedure Log Time Note 10:58:19 Patient Height : 65 inches 10:58:23 Patient Weight : 130 lbs 10:59:09 Time tracking: Regular hours (M-F 7:00 - 5:00) 11:04:02 Vital chart was started 11:08:08 Plan of Care:Hemodynamics will remain stable., Cardiac rhythm will remain stable., Comfort level will be maintained., Respiratory function will remain adequate., Patient/ family verbilizes understanding of procedure., Procedure tolerated without complication., Recovers from procedure without complications.. 11:08:14 Patient received from Outpatients to IR Alert and oriented. Tansferred to table in Supine position. 11:08:21 Signed procedure consent form obtained from spouse. 11:08:26 ECG and BP/O2 sat monitors applied to patient. 11:08:27 Baseline sample Acquired. 11:08:29 Full Disclosure recording started 11:08:30 - 11:08:35 H&P Date Dictated: 07/06/2018 Within 30 days and on chart.. 11:08:38 Pre-procedure instructions explained to patient. 11:08:39 Pre-op teaching completed and patient verbalized understanding. 11:08:42 Family in waiting room. 11:08:45 Patient NPO since Midnight. 11:09:48 alergies to flu vaccine, omeprazole, reglan 11:10:10 Patient diabetic? Yes. 11:11:02 ----Pre-sedation anethsthesia assessment.---- 11:11:56 Previous problem with sedation/anesthesia? No ? 11:12:00 Snore? No 11:12:02 Sleep apnea? No 11:12:04 Deviated septum? No 11:12:06 Opens mouth fully? Yes 11:12:08 Sticks out tongue? Yes 11:12:18 Airway obstruction? Yes pl effusions 11:12:24 Dentures? No ? 11:12:27 - 11:12:36 IV patent on arrival in right forearm with D5/.45%NaCl at KVO. 11:13:08 If diabetic: On Metformin? Yes 11:13:22 Right chest area was prepped with chlora-prep and draped in sterile fashion 11:13:37 - 11:13:42 Use device set IR Diagnostic 11:14:16 PLEURX 500ml drainage kit ([id number]) opened to sterile field. 11:14:18 Tegaderm 4 x 4 ([id number]) opened to sterile field. 11:14:19 Sterile Angiographic Pack opened to sterile field. 11:14:20 Bag Decanter ([id number]) opened to sterile field. 11:16:18 Ancef (1Gm/50ml NS) 2G I.V.P.B was administered by Megan Ramos RN; Per protocol; 11:16:41 Oxygen 4 l/min etCO2 Nasal cannula was administered by Megan Ramos RN; Per protocol; 11:17:24 Lidocaine 1% 20ml vial added to field was administered by Domenico goncalves MD; Per protocol; 11:18:15 Heparin Flush Bag (1000units/500ml NS) 1 bags added to field was administered by Domenico Sousa MD; Per protocol; 11:23:49 Physician arrived 11:24:00 --------ALL STOP TIME OUT------ 11:24:02 Final Timeout: patient, procedure, and site verified with staff and physician. All members of the team are in agreement. 11:24:08 Procedure started. 11:24:32 Versed 0.5 mg I.V. was administered by Megan aRmos RN; for sedation; 11:24:40 Local anesthetic to Chest area with Lidocaine 1% by Linnette Robles RT(R).INITIAL ACCESS ONLY 11:25:00 Fentanyl 25 mcg I.V. was administered by Megan Ramos RN; for sedation; 11:28:57 Versed 0.5 mg I.V. was administered by Megan Ramos RN; for sedation; 11:29:07 Fentanyl 25 mcg I.V. was administered by Megan Ramos RN; for sedation; 11:29:19 Effectiveness of Fentanyl delivered @ 11:25:00 is: Dozing intermittentl y 11:29:23 Effectiveness of Versed delivered @ 11:24:32 is: Dozing intermittently 11:46:07 3 liters drained from chest with newly inserted pleurx cath 11:53:14 Procedure ended.(Physican Out) :53:29 Fluoroscopy time 00.30 minutes. 11:53:33 Fluoroscopy dose: 9 mGy 11:53:33 Flurop Dose total: 9 11:53:54 Procedure and supply charges have been captured, reviewed, submitted an d are correct. 11:54:28 Report given to Outpatients. 11:58:38 Vital chart was stopped Device Usage Item Name Manufacture Quantity Catalog Hospital Part Current Minimal Lot# / Number Charge Number Stock Stock Serial# Code PLEURX 500ml CareFusion 1 [id number] 5 drainage kit ([id number]) Tegaderm 4 x 3M 1 [id number] 5 4 (1626W) Sterile Cardinal 1 [id number] 5 Angiographic Health Pack Bag Decanter Microtek 1 [id number] 5 () [employer] Signature Audit [facility] Stage Time Signature Unsigned Intra-Procedure 07/06/2018 Linnette Robles 11:58:35 AM RT(R) [facility] [address] [place] [address]
[2018-07-06 08:29] LABS: BASOPHILS 0 % (0-2); EOSINOPHILS 0.9 % (0-7); HEMATOCRIT 26.8 % (42.0-54.0); HEMOGLOBIN 8.8 g/dL (13.5-17.5); IMMATURE GRANULOCYTES 0.3 % (0-5); LYMPHOCYTES 12.3 % (15-50); MCH 29.6 pg (26.0-34.0); MCHC 32.8 g/dL (31.0-37.0); MCV 90.2 fL (80.0-100.0); NEUTROPHILS 78.5 % (40-80); PLATELET COUNT 71 10x3/uL (130-400); RBC 2.97 10x6/uL (4.20-6.10); RDW 16.4 % (11.5-14.5); WBC 3.5 10x3/uL (4.8-10.8)
[2018-07-06 08:38] LABS: APTT 32.4 SECONDS (22.8-39.4); INR 1.23 (0.85-1.17)
[2018-07-06 08:48] LABS: CREATININE - SERUM 2.9 mg/dL (0.6-1.3)
[2018-07-06 09:06] VITALS: BP 132/62; Ht 165.1 cm; Wt 59.1 kg
[2018-07-06] MEDS ORDERED: PEPCID20 MG PO (22:27)
[2018-07-06] MEDS ORDERED: LISINOPRIL10 MG PO (22:28)
[2018-07-06] MEDS ORDERED: LASIX20 MG PO (22:28)
[2018-07-06] MEDS ORDERED: ZOFRAN4 MG PO (22:29)
[2018-07-06] MEDS ORDERED: GLUCOPHAGE500 MG PO (22:29)
== END 2018-07-06 14:30 | disposition home or self-care (01) ==
LOC: D.SP 07:30 → D.RAD 09:00 → D.SP 09:00
PROVIDERS: Radiology Diagnostic Radiology
DX: T85.9XXA Unspecified complication of internal prosthetic device, implant and graft, initial encounter (principal); C22.0 Liver cell carcinoma; J91.0 Malignant pleural effusion; Z01.812 Encounter for preprocedural laboratory examination

== ENCOUNTER 2018-07-06 22:03 | Emergency (ER) | payer MEDICARE, OTHER ==
[~2018-07-06] VITALS: Ht 165.1 cm; Wt 68.0 kg
[2018-07-06 22:25] VITALS: Ht 165.1 cm; Wt 68.0 kg
[2018-07-06] MEDS ORDERED: PEPCID20 MG PO (22:27)
[2018-07-06] MEDS ORDERED: LASIX20 MG PO (22:28)
[2018-07-06] MEDS ORDERED: LISINOPRIL10 MG PO (22:28)
[2018-07-06] MEDS ORDERED: ZOFRAN4 MG PO (22:29)
[2018-07-06] MEDS ORDERED: GLUCOPHAGE500 MG PO (22:29)
[2018-07-07 02:12] VITALS: BP 112/69
== END 2018-07-07 02:12 | disposition home or self-care (01) ==
LOC: D.ER 22:03
DX: T82.898A Other specified complication of vascular prosthetic devices, implants and grafts, initial encounter (principal); E11.9 Type 2 diabetes mellitus without complications; I10 Essential (primary) hypertension; I25.10 Atherosclerotic heart disease of native coronary artery without angina pectoris; I73.9 Peripheral vascular disease, unspecified; Z89.512 Acquired absence of left leg below knee; Z89.511 Acquired absence of right leg below knee

== ENCOUNTER 2018-07-10 21:05 | Inpatient (IN) | payer MEDICARE, OTHER ==
[~2018-07-10] VITALS: Ht 165.1 cm; Wt 61.7 kg
[2018-07-10 21:08] VITALS: BP 145/39
[2018-07-10] MEDS ORDERED: CENTRUM SILVER1 TA1 PO (21:13)
[2018-07-10] MEDS ORDERED: CATAPRES0.1 MG (21:14)
[2018-07-10 22:01] VITALS: BP 134/33
[2018-07-10 23:30] LABS: BASOPHILS 0.2 % (0-2); EOSINOPHILS 1.8 % (0-7); HEMATOCRIT 28.4 % (42.0-54.0); HEMOGLOBIN 9.2 g/dL (13.5-17.5); IMMATURE GRANULOCYTES 0.6 % (0-5); LYMPHOCYTES 11.5 % (15-50); MCH 29.2 pg (26.0-34.0); MCHC 32.4 g/dL (31.0-37.0); MCV 90.2 fL (80.0-100.0); MONOCYTES 10.9 % (2-11); PLATELET COUNT 97 10x3/uL (130-400); RBC 3.15 10x6/uL (4.20-6.10); RDW 16.1 % (11.5-14.5)
[2018-07-10 23:48] LABS: ALBUMIN 1.5 g/dL (3.4-5.0); ANION GAP 12.1 mmol/L (8-16); BILIRUBIN - TOTAL 0.27 mg/dL (0.2-1.3); CALCIUM 7.6 mg/dL (8.5-10.1); CARBON DIOXIDE 20.2 mmol/L (21.0-32.0); CREATININE - SERUM 3.4 mg/dL (0.6-1.3); POTASSIUM - SERUM 5.3 mmol/L (3.5-5.1)
[2018-07-10 23:57] VITALS: BP 129/37
[2018-07-11] VITALS (8 sets, daily range): BP systolic 106–125; BP diastolic 38–78; BMI 22.6
[2018-07-11 00:01] LABS: PLATELET ESTIMATE DECREASED
[2018-07-11 06:17] LABS: BASOPHILS 0.3 % (0-2); EOSINOPHILS 2.2 % (0-7); HEMATOCRIT 25.4 % (42.0-54.0); HEMOGLOBIN 8.3 g/dL (13.5-17.5); LYMPHOCYTES 15.5 % (15-50); MCH 29.4 pg (26.0-34.0); MCHC 32.7 g/dL (31.0-37.0); MCV 90.1 fL (80.0-100.0); MEAN PLATELET VOLUME 10.5 fL (7.4-10.4); MONOCYTES 10.9 % (2-11); NEUTROPHILS 71.1 % (40-80); PLATELET COUNT 90 10x3/uL (130-400); RBC 2.82 10x6/uL (4.20-6.10); RDW 16.2 % (11.5-14.5)
[2018-07-11 06:20] LABS: WBC 3.7 10x3/uL (4.8-10.8)
[2018-07-11 07:05] LABS: INR 1.25 (0.85-1.17); PROTIME 15.3 SECONDS (11.6-15.0)
[2018-07-11 07:34] LABS: ANION GAP 13.6 mmol/L (8-16); CALCIUM 7.4 mg/dL (8.5-10.1); CARBON DIOXIDE 20.8 mmol/L (21.0-32.0); CREATININE - SERUM 3.1 mg/dL (0.6-1.3); POTASSIUM - SERUM 5.4 mmol/L (3.5-5.1)
[2018-07-12 04:10] VITALS: BP 115/41
[2018-07-12 06:01] LABS: BASOPHILS 0 % (0-2); EOSINOPHILS 1.2 % (0-7); HEMATOCRIT 25.2 % (42.0-54.0); HEMOGLOBIN 8.2 g/dL (13.5-17.5); LYMPHOCYTES 12.5 % (15-50); MCH 29.4 pg (26.0-34.0); MCHC 32.5 g/dL (31.0-37.0); MCV 90.3 fL (80.0-100.0); MONOCYTES 8.9 % (2-11); NEUTROPHILS 77.4 % (40-80); PLATELET COUNT 81 10x3/uL (130-400); RBC 2.79 10x6/uL (4.20-6.10); RDW 16.4 % (11.5-14.5); WBC 3.3 10x3/uL (4.8-10.8)
[2018-07-12 06:49] LABS: ALBUMIN 1.3 g/dL (3.4-5.0); ANION GAP 15.2 mmol/L (8-16); BILIRUBIN - TOTAL 0.25 mg/dL (0.2-1.3); CALCIUM 7.6 mg/dL (8.5-10.1); CARBON DIOXIDE 19.3 mmol/L (21.0-32.0); CREATININE - SERUM 2.8 mg/dL (0.6-1.3); POTASSIUM - SERUM 5.5 mmol/L (3.5-5.1); PROTEIN - SERUM 5.3 g/dL (6.4-8.2)
[2018-07-12 08:43] VITALS: BP 117/62
[2018-07-12 12:35] VITALS: Ht 165.1 cm; Wt 61.7 kg
[2018-07-12 13:16] VITALS: BP 114/48
[2018-07-12 18:06] VITALS: BP 117/54
[2018-07-12 21:02] VITALS: BP 101/40
[2018-07-13 05:21] VITALS: BP 113/46
[2018-07-13 07:19] LABS: HEMATOCRIT 25.2 % (42.0-54.0); HEMOGLOBIN 8.1 g/dL (13.5-17.5); MCH 29.3 pg (26.0-34.0); MCHC 32.1 g/dL (31.0-37.0); MCV 91.3 fL (80.0-100.0); MEAN PLATELET VOLUME 11.2 fL (7.4-10.4); PLATELET COUNT 83 10x3/uL (130-400); RBC 2.76 10x6/uL (4.20-6.10); RDW 16.6 % (11.5-14.5); WBC 2.7 10x3/uL (4.8-10.8)
[2018-07-13 07:45] LABS: ALBUMIN 1.3 g/dL (3.4-5.0); ANION GAP 12.4 mmol/L (8-16); BILIRUBIN - TOTAL 0.22 mg/dL (0.2-1.3); CALCIUM 7.5 mg/dL (8.5-10.1); CARBON DIOXIDE 18.8 mmol/L (21.0-32.0); POTASSIUM - SERUM 5.2 mmol/L (3.5-5.1); PROTEIN - SERUM 5.3 g/dL (6.4-8.2)
[2018-07-13 08:24] LABS: ANISOCYTOSIS OCC; EOSINOPHILS 5 % (0-7); HYPOCHROMASIA OCC; LYMPHOCYTES 15 % (15-50); MONOCYTES 8 % (2-11); NEUTROPHILS 70 % (40-80); PLATELET ESTIMATE DECREASED; ROULEAUX OCC
[2018-07-13 09:21] VITALS: BP 68/42
[2018-07-13 10:30] VITALS: BP 138/51
[2018-07-13 12:38] VITALS: BP 120/52
== END 2018-07-13 13:17 | disposition home health service (06) | DRG 187 ==
LOC: D.ER 21:05 → D.EDHOLD 07-11 00:19 → OBSVTIME 07-11 00:19 → D.MS 07-11 00:19
PROVIDERS: Family Medicine
DX: J90 Pleural effusion, not elsewhere classified (principal); K63.2 Fistula of intestine; C22.0 Liver cell carcinoma; B15.9 Hepatitis A without hepatic coma; I48.92 Unspecified atrial flutter; N17.9 Acute kidney failure, unspecified; R18.8 Other ascites; E11.9 Type 2 diabetes mellitus without complications; I48.91 Unspecified atrial fibrillation; I25.10 Atherosclerotic heart disease of native coronary artery without angina pectoris; E11.22 Type 2 diabetes mellitus with diabetic chronic kidney disease; N18.9 Chronic kidney disease, unspecified; E87.5 Hyperkalemia

== ENCOUNTER 2018-07-21 06:35 | Outpatient (CLI) | payer MEDICARE, OTHER ==
[~2018-07-21] VITALS: Ht 165.1 cm; Wt 54.5 kg
[~2018-07-21 06:35] MED LIST changes: +CATAPRES0.1 MG; +CENTRUM SILVER1 TA1 PO
[2018-07-21 08:40] VITALS: BP 117/56; Ht 165.1 cm; Wt 54.5 kg
[2018-07-21 08:47] LABS: BASOPHILS 0.2 % (0-2); EOSINOPHILS 1.4 % (0-7); HEMATOCRIT 27.1 % (42.0-54.0); IMMATURE GRANULOCYTES 0.4 % (0-5); LYMPHOCYTES 8.8 % (15-50); MCH 29.6 pg (26.0-34.0); MCHC 33.2 g/dL (31.0-37.0); MCV 89.1 fL (80.0-100.0); MEAN PLATELET VOLUME 10.2 fL (7.4-10.4); MONOCYTES 8.4 % (2-11); NEUTROPHILS 80.8 % (40-80); RBC 3.04 10x6/uL (4.20-6.10); RDW 15.7 % (11.5-14.5)
[2018-07-21 08:48] LABS: PLATELET COUNT 119 10x3/uL (130-400)
[2018-07-21 08:52] LABS: ANION GAP 12.9 mmol/L (8-16); CALCIUM 7.4 mg/dL (8.5-10.1); CARBON DIOXIDE 20.8 mmol/L (21.0-32.0); POTASSIUM - SERUM 4.7 mmol/L (3.5-5.1)
[2018-07-21 09:04] LABS: APTT 35.1 SECONDS (22.8-39.4); INR 1.28 (0.85-1.17); PROTIME 15.5 SECONDS (11.6-15.0)
== END 2018-07-21 12:49 | disposition home or self-care (01) ==
LOC: D.SP 06:35 → D.RAD 09:00 → D.SP 12:49
PROVIDERS: Specialist
DX: J90 Pleural effusion, not elsewhere classified (principal); Z01.812 Encounter for preprocedural laboratory examination

== ENCOUNTER 2018-08-11 19:52 | Emergency (ER) | payer MEDICARE, OTHER ==
[~2018-08-11] VITALS: Ht 165.1 cm; Wt 54.5 kg
[2018-08-11 19:54] VITALS: Ht 165.1 cm; Wt 54.5 kg
[2018-08-11 21:01] LABS: BASOPHILS 0.2 % (0-2); EOSINOPHILS 0.2 % (0-7); HEMATOCRIT 25.2 % (42.0-54.0); HEMOGLOBIN 8.3 g/dL (13.5-17.5); IMMATURE GRANULOCYTES 0.2 % (0-5); LYMPHOCYTES 6.6 % (15-50); MCH 29.2 pg (26.0-34.0); MCHC 32.9 g/dL (31.0-37.0); MCV 88.7 fL (80.0-100.0); MONOCYTES 7.2 % (2-11); NEUTROPHILS 85.6 % (40-80); RBC 2.84 10x6/uL (4.20-6.10); RDW 15.7 % (11.5-14.5); WBC 5.5 10x3/uL (4.8-10.8)
[2018-08-11 21:02] LABS: PLATELET COUNT 79 10x3/uL (130-400)
[2018-08-11 21:33] LABS: ALBUMIN 1.6 g/dL (3.4-5.0); ANION GAP 17.1 mmol/L (8-16); BILIRUBIN - TOTAL 0.31 mg/dL (0.2-1.3); CALCIUM 7.6 mg/dL (8.5-10.1); CARBON DIOXIDE 15.4 mmol/L (21.0-32.0); CREATININE - SERUM 3.3 mg/dL (0.6-1.3); PROTEIN - SERUM 5.9 g/dL (6.4-8.2)
[2018-08-11 21:42] LABS: PLATELET ESTIMATE DECREASED
[2018-08-11 21:54] LABS: POTASSIUM - SERUM 6.5 mmol/L (3.5-5.1)
[2018-08-12 00:45] VITALS: BP 116/58
== END 2018-08-12 00:47 | disposition home or self-care (01) ==
LOC: D.ER 19:52
PROVIDERS: Emergency Medicine
DX: C22.8 Malignant neoplasm of liver, primary, unspecified as to type (principal); I12.9 Hypertensive chronic kidney disease with stage 1 through stage 4 chronic kidney disease, or unspecified chronic kidney disease; N18.9 Chronic kidney disease, unspecified; D64.9 Anemia, unspecified; E11.9 Type 2 diabetes mellitus without complications; R53.1 Weakness; E87.5 Hyperkalemia; E87.1 Hypo-osmolality and hyponatremia; I25.10 Atherosclerotic heart disease of native coronary artery without angina pectoris; K21.9 Gastro-esophageal reflux disease without esophagitis

== ENCOUNTER 2018-09-01 17:35 | Emergency (ER) | payer MEDICARE, OTHER ==
[2018-09-01 17:46] VITALS: Ht 165.1 cm
[2018-09-01 18:28] LABS: ALBUMIN 1.7 g/dL (3.4-5.0); ANION GAP 13.6 mmol/L (8-16); BILIRUBIN - TOTAL 0.42 mg/dL (0.2-1.3); CALCIUM 8.1 mg/dL (8.5-10.1); CARBON DIOXIDE 19.6 mmol/L (21.0-32.0); CREATININE - SERUM 3.3 mg/dL (0.6-1.3); PROTEIN - SERUM 6.4 g/dL (6.4-8.2)
[2018-09-01 18:29] LABS: POTASSIUM - SERUM 7.2 mmol/L (3.5-5.1)
[2018-09-01 20:48] LABS: BASOPHILS 0.2 % (0-2); EOSINOPHILS 0.4 % (0-7); HEMATOCRIT 27.6 % (42.0-54.0); HEMOGLOBIN 9.2 g/dL (13.5-17.5); IMMATURE GRANULOCYTES 0.2 % (0-5); LYMPHOCYTES 9.9 % (15-50); MCH 29.5 pg (26.0-34.0); MCHC 33.3 g/dL (31.0-37.0); MCV 88.5 fL (80.0-100.0); MEAN PLATELET VOLUME 10.4 fL (7.4-10.4); MONOCYTES 9.9 % (2-11); NEUTROPHILS 79.4 % (40-80); RBC 3.12 10x6/uL (4.20-6.10); RDW 15.4 % (11.5-14.5); WBC 5.6 10x3/uL (4.8-10.8)
[2018-09-01 20:50] LABS: PLATELET COUNT 145 10x3/uL (130-400)
[2018-09-01 21:54] LABS: APPEARANCE CLEAR (CLEAR); BILIRUBIN NEGATIVE (NEGATIVE); COLOR YELLOW (YELLOW); GLUCOSE NEGATIVE (NEGATIVE); KETONE NEGATIVE (NEGATIVE); NITRITE NEGATIVE (NEGATIVE); PROTEIN NEGATIVE (NEGATIVE); SPECIFIC GRAVITY 1.015 (1.005-1.020); UROBILINOGEN NORMAL (NORMAL)
[2018-09-02] MEDS ORDERED: KAYEXALATE15 G/60 ML PO (01:21)
[2018-09-02 01:55] VITALS: BP 109/52
== END 2018-09-02 01:56 | disposition home or self-care (01) ==
LOC: D.ER 17:35
PROVIDERS: Family Medicine
DX: E87.5 Hyperkalemia (principal); C22.8 Malignant neoplasm of liver, primary, unspecified as to type; E11.9 Type 2 diabetes mellitus without complications; I10 Essential (primary) hypertension; I48.91 Unspecified atrial fibrillation; I25.10 Atherosclerotic heart disease of native coronary artery without angina pectoris; K21.9 Gastro-esophageal reflux disease without esophagitis; I45.10 Unspecified right bundle-branch block

== ENCOUNTER 2018-09-27 22:12 | Inpatient (IN) | payer MEDICARE, OTHER ==
[~2018-09-27] VITALS: Ht 165.1 cm; Wt 54.4 kg
--- NOTE | ~2018-09-27 | MORECARE ---
CASE MANAGEMENT DISCHARGE SUMMARY PATIENT: GAVIN CLARK JR UNIT: [id number] ADM DATE: 09/28/18 AGE: 78 : [birth year] SEX: M ROOM/BED: D.2220 AUTHOR: SOBIA MCCRARY PHYSICIAN: REFERRING PHYSICIAN: MARIELLE YANG MD DATE OF SERVICE: 09/28/18 Discharge Plan Patient Name: GAVIN CLARK Facility[facility]:[place] : 1940 Planned Disposition: Hospice Home Anticipated Discharge Date: Discharge Date: Expected LOS: Initial Reviewer: [email or web address] Initial Review Date: 09/28/2018 Generated: 09/28/18 5:05 pm Patient Name: GAVIN CLARK Page [phone] at 1606 All edits/amendments must be made on the electronic document DICTATION DATE: 09/28/18 160 CLINICAL PROGRAM DIRECTOR: SYEDA 09/28/18 160 RPT#: [id number] DC DATE: STATUS: ADM IN [facility] [address] [place] [address] END OF REPORT
--- NOTE | ~2018-09-27 | HP ---
PATIENT: GAVIN CLARK JR MEDICAL RECORD: [id number] ACCOUNT: [id number] LOCATION:D.MS [place] : 41 ADMISSION DATE: 09/28/18 PCP: MARIELLE YANG MD HISTORY AND PHYSICAL EXAMINATION REASON FOR ADMISSION: Chest pain. HISTORY OF PRESENT ILLNESS: The patient is a 78-year-old male with end-stage hepatocellular carcinoma and hospice for that reason. His stated he had been more congested the last couple of days with cough and had had some scant hemoptysis in his sputum yesterday. Last evening, he complained of some sharp chest pain in his left upper chest up into his neck. For that reason, she called the hospice nurse who recommended taking morphine. He took a dose of morphine, about an hour he was not better, so he came to the Emergency Room. He has had no documented fever. His stated he had been much weaker. In the ED, a chest x-ray showed left lower lobe infiltrates consistent with pneumonia, did have leukocytosis. For that reason, the wished he be admitted for treatment of pneumonia and pain control. PAST MEDICAL HISTORY: Jeqgj-jf-tunjwvo renal insufficiency with hyperkalemia, peripheral vascular disease, cirrhosis, hepatocellular carcinoma, chronic anemia, chronic thrombocytopenia, coronary artery disease, history of acute cholecystitis post-cholecystectomy, bronchitis, COPD, diabetes mellitus type 2, watermelon stomach with prior upper GI bleeding, paroxysmal atrial fibrillation off anticoagulation due to risk of bleeding, nicotine addiction remote, history of gangrene of right and left foot, postop BKAs, osteoarthritis, hyperlipidemia, benign colon polyps, esophageal varices, hypothyroidism. PAST SURGICAL HISTORY: PTCA of the LAD times 2, resection of the colon for diverticular disease, hernia repair, thermal therapy for watermelon stomach multiple times per Dr. Will, has had multiple interventional radiology procedures in lower extremities with stent placement prior to his BKAs. SOCIAL HISTORY: He is , used to be a moderate alcohol drinker and smoker. Does not do either currently. Lives with his who is caring for him with hospice currently and a diagnosis of hepatocellular carcinoma. FAMILY HISTORY: Positive for hypertension in both his parents who are . ALLERGIES: PROTONIX, PRILOSEC, FLU VACCINE, and REGLAN. CURRENT MEDICATIONS: Amiodarone 200 mg a day, Tylenol suppository 650 p.r.n. fever, Endocet 10/325 one q.4 hours for pain, lactulose 15 cc p.o. b.i.d. for constipation, Pepcid 20 mg p.o. b.i.d., levothyroxine 25 mcg p.o. q.a.m. REVIEW OF SYSTEMS: GENERAL: He has been progressively fatigued. No recent fever or poor appetite. HEENT: No recent visual change, sinus congestion, or hearing difficulty. RESPIRATORY: Does complain of some pleuritic type chest pain with increasing pulmonary congestion for the last several days and scant hemoptysis per his 's history. At rest, he is not short of breath currently. CARDIAC: No palpitations. GASTROINTESTINAL: No nausea, vomiting, change in stools, blood per rectum. Occasionally constipated. GENITOURINARY: Has nocturia twice nightly. HISTORY AND PHYSICAL [id number] GAVIN CLARK JR ENDOCRINE: Denies polyuria, polydipsia, heat or cold intolerance. NEUROLOGIC: No history of stroke, TIA, or vascular headaches. INTEGUMENT: No rash or itching. PSYCHIATRIC: Admits to chronically mild depressed mood due to his terminal diagnosis. MUSCULOSKELETAL: Chronic arthralgias in his lumbar spine. PHYSICAL EXAMINATION: VITAL SIGNS: Temperature 97.3 Fahrenheit, pulse 70, respirations are 18, blood pressure is 107/57, O2 sat of 99% on 2 liters. HEENT: Eyes are clear, nonicteric. Oropharynx shows dry mucous membranes. NECK: Supple. CHEST: Clear. HEART: Regular rate and rhythm without murmur. LUNGS: Decreased breath sounds in the left base with faint wheeze in the upper lobes bilaterally. No retractions. ABDOMEN: Soft, somewhat tender over the liver edge on the right, which is mildly enlarged. No ascitic wave noted. EXTREMITIES: BKA bilaterally with healed stumps. SKIN: Unremarkable. NEUROLOGICAL: Oriented to person, place, and time. Cranial nerves grossly intact. Gait not testable. LABORATORY DATA: Shows white count of 12.9 thousand with 89 polys, H&H is 8.5 and 24.6. Potassium 6.4, sodium is 122, BUN and creatinine are 73 and 4.0. Chest x-ray shows left lower lobe infiltrate. ASSESSMENT: Left lower lobe pneumonia, community acquired; chest pain, probably secondary to pleurisy; pidfh-cf-crlaste renal insufficiency; hepatocellular carcinoma, in hospice; hyperkalemia; diabetes mellitus. PLAN: The patient is admitted for treatment of pneumonia and chest pain. ER doctor has treated his acute hyperkalemia. We will follow that closely. We will consult if indicated. The patient is DNR status. TRANSINT:[id number] Voice Confirmation ID: [id number] DOCUMENT ID: [id number] MARIELLE YANG MD at 0521 CC: [id number] DICTATION DATE: 09/28/18 0736 PLANT TECHNICIAN/CONTROL ROOM OPERATOR: 09/28/18 0757 ADM IN [facility] [address] [id number]
--- NOTE | ~2018-09-27 | MORECARE ---
CASE MANAGEMENT DISCHARGE SUMMARY PATIENT: GAVIN CLARK UNIT: [id number] ADM DATE: 09/28/18 AGE: 78 : 41 SEX: M ROOM/BED: D.2220 AUTHOR: SOBIA MCCRARY PHYSICIAN: REFERRING PHYSICIAN: MARIELLE YANG MD DATE OF SERVICE: 09/30/18 Discharge Plan Patient Name: GAVIN CLARK Facility: [facility]:[place] : 1940 Planned Disposition: Hospice Home Anticipated Discharge Date: Discharge Date: Expected LOS: Initial Reviewer: [email or web address] Initial Review Date: 09/28/2018 Generated: 09/30/18 4:56 pm Comments DCP- Discharge Planning Updated by [email or web address]: Мария Lees on 09/30/18 2:[address] ORDER RECEIVED FOR INPATIENT HOSPICE, I CALLED [facility] AND SPOKE WITH TY, SHE IS GOING TO CALL THE AND GET BACK WITH ME DCP- Discharge Planning Updated by [email or web address]: Мария Lees on 09/28/18 3:[address] Patient Name: GAVIN CLARK Admission Status: ER Accout number: [id number] Admission Date: 09-28-2018 : 1940 Admission Diagnosis: Attending: MARIELLE YANG Current LOS: 1 Anticipated DC Date: Planned Disposition: Hospice Home Primary Insurance: MEDICARE A & B Discharge Planning Comments: CM met with patient and to assess discharge planning . Patient is currently on hospice at home with . He has an aide 5 days a week. All DME is provided through hospice. He has a hospital bed, home o2, wheelchair at home. He has a pleurex drain and the supplies. CM will continue to follow and assist with DC planning needs. Patient lives with his he is a double amputee and will need an ambulance to take him home when he is DC. Director Patient Financial Services: Мария Lees DCPIA - Discharge Planning Initial Assessment Updated by [email or web address]: Мария Lees on 09/28/18 4:06 pm * Is the patient Alert and Oriented? Yes * PCP * [facility] [address] * Preadmission Environment Hospice * ADLs Partial Dependent * Partial ADLs (Assistance needed) Ambulation Bathing Dressing Medication Management Toileting Transfers * Equipment Bedside Commode Grab Bars Hospital Bed Oxygen * List name and contact numbers for known caregivers / representatives who currently or will assist patient after discharge: Marcella () [phone] * Verbal permission to speak to the caregivers and representatives has been obtained from the patient. Yes * Community resources currently utilized Hospice Home * Please name any agencies selected above. [facility] * Additional services required to return to the preadmission environment? No * Can the patient safely return to the preadmission environment? Yes * Has this patient been hospitalized within the prior 30 days at any hospital? No External Providers External Provider: [facility] Next Contact Date: Service Request Date: Service Type: Resolution: Reviewer: Comments: Last DP export: 09/30/18 2:40 p Patient Name: GAVIN CLARK Page [phone] at 1556 All edits/amendments must be made on the electronic document DICTATION DATE: 09/30/181555 BUILDING CONSTRUCTION SUPERVISOR: SYEDA 09/30/181555 RPT#: [id number] DC DATE: STATUS: ADM IN [facility] [address] [place] [address] END OF REPORT
--- NOTE | ~2018-09-27 | MORECARE ---
CASE MANAGEMENT DISCHARGE SUMMARY PATIENT: GAVIN CLARK UNIT: [id number] ADM DATE: 09/28/18 AGE: 78 : 41 SEX: M ROOM/BED: D.2220 AUTHOR: SOBIA MCCRARY PHYSICIAN: REFERRING PHYSICIAN: MARIELLE YANG MD DATE OF SERVICE: 09/28/18 Discharge Plan Patient Name: GAVIN CLARK Facility: [facility]:[place] : 1940 Planned Disposition: Hospice Home Anticipated Discharge Date: Discharge Date: Expected LOS: Initial Reviewer: [email or web address] Initial Review Date: 09/28/2018 Generated: 09/28/18 5:12 pm Comments DCP- Discharge Planning Updated by [email or web address]: Мария Lees on 09/28/18 3:[address] Patient Name: GAVIN CLARK Admission Status: ER Accout number: [id number] Admission Date: 09-28-2018 : 1940 Admission Diagnosis: Attending: MARIELLE YANG Current LOS: 1 Anticipated DC Date: Planned Disposition: Hospice Home Primary Insurance: MEDICARE A & B Discharge Planning Comments: CM met with patient and to assess discharge planning . Patient is currently on hospice at home with [facility]. He has an aide 5 days a week. All DME is provided through hospice. He has a hospital bed, home o2, wheelchair at home. He has a pleurex drain and the supplies. CM will continue to follow and assist with DC planning needs. Patient lives with his he is a double amputee and will need an ambulance to take him home when he is DC. Document Clerk: Мария Lees DCPIA - Discharge Planning Initial Assessment Updated by [email or web address]: Мария Lees on 09/28/18 4:06 pm * Is the patient Alert and Oriented? Yes * PCP * [facility] [address] * Preadmission Environment Hospice * ADLs Partial Dependent * Partial ADLs (Assistance needed) Ambulation Bathing Dressing Medication Management Toileting Transfers * Equipment Bedside Commode Grab Bars Hospital Bed Oxygen * List name and contact numbers for known caregivers / representatives who currently or will assist patient after discharge: Marcella () [phone] * Verbal permission to speak to the caregivers and representatives has been obtained from the patient. Yes * Community resources currently utilized Hospice Home * Please name any agencies selected above. [facility] * Additional services required to return to the preadmission environment? No * Can the patient safely return to the preadmission environment? Yes * Has this patient been hospitalized within the prior 30 days at any hospital? No Last DP export: 09/28/18 3:06 Patient Name: GAVIN CLARK Page 17751 at 1612 All edits/amendments must be made on the electronic document DICTATION DATE: 09/28/181611 OFFENSIVE COORDINATOR: SYEDA 09/28/181611 RPT#: [id number] DC DATE: STATUS: ADM IN [facility] [address] [place] [address] END OF REPORT
--- NOTE | ~2018-09-27 | MORECARE ---
CASE MANAGEMENT DISCHARGE SUMMARY PATIENT: GAVIN CLARK UNIT: [id number] ADM DATE: 09/28/18 AGE: 78 : 41 SEX: M ROOM/BED: D.2220 AUTHOR: SOBIA MCCRARY PHYSICIAN: REFERRING PHYSICIAN: MARIELLE YANG MD DATE OF SERVICE: 09/30/18 Discharge Plan Patient Name: GAVIN CLARK Facility: [facility]:[place] : 1940 Planned Disposition: Hospice Home Anticipated Discharge Date: Discharge Date: Expected LOS: Initial Reviewer: [email or web address] Initial Review Date: 09/28/2018 Generated: 09/30/18 4:39 pm Comments DCP- Discharge Planning Updated by [email or web address]: Мария Lees on 09/30/18 2:[address] ORDER RECEIVED FOR INPATIENT HOSPICE, I CALLED [facility] AND SPOKE WITH TY, SHE IS GOING TO CALL THE AND GET BACK WITH ME DCP- Discharge Planning Updated by [email or web address]: Мария Lees on 09/28/18 3:[address] Patient Name: GAVIN CLARK Admission Status: ER Accout number: [id number] Admission Date: 09-28-2018 : 1940 Admission Diagnosis: Attending: MARIELLE YANG Current LOS: 1 Anticipated DC Date: Planned Disposition: Hospice Home Primary Insurance: MEDICARE A & B Discharge Planning Comments: CM met with patient and to assess discharge planning . Patient is currently on hospice at home with [facility]. He has an aide 5 days a week. All DME is provided through hospice. He has a hospital bed, home o2, wheelchair at home. He has a pleurex drain and the supplies. CM will continue to follow and assist with DC planning needs. Patient lives with his he is a double amputee and will need an ambulance to take him home when he is DC. Restaurant Assistant: Мария Lees DCPIA - Discharge Planning Initial Assessment Updated by [email or web address]: Мария Lees on 09/28/18 4:06 pm * Is the patient Alert and Oriented? Yes * PCP * [facility] [address] * Preadmission Environment Hospice * ADLs Partial Dependent * Partial ADLs (Assistance needed) Ambulation Bathing Dressing Medication Management Toileting Transfers * Equipment Bedside Commode Grab Bars Hospital Bed Oxygen * List name and contact numbers for known caregivers / representatives who currently or will assist patient after discharge: Marcella () [phone] * Verbal permission to speak to the caregivers and representatives has been obtained from the patient. Yes * Community resources currently utilized Hospice Home * Please name any agencies selected above. [facility] * Additional services required to return to the preadmission environment? No * Can the patient safely return to the preadmission environment? Yes * Has this patient been hospitalized within the prior 30 days at any hospital? No Last DP export: 09/28/18 3:12 Patient Name: GAVIN CLARK Page 02421 at 1540 All edits/amendments must be made on the electronic document DICTATION DATE: 09/30/181538 NURSE PLASTICS: SYEDA 09/30/181538 RPT#: [id number] DC DATE: STATUS: ADM IN [facility] [address] [place] [address] END OF REPORT
--- NOTE | ~2018-09-27 | MORECARE ---
CASE MANAGEMENT DISCHARGE SUMMARY PATIENT: GAVIN CLARK UNIT: [id number] ADM DATE: 09/28/18 AGE: 78 : 41 SEX: M ROOM/BED: D.2220 AUTHOR: SOBIA MCCRARY PHYSICIAN: REFERRING PHYSICIAN: MARIELLE YANG MD DATE OF SERVICE: 10/05/18 Discharge Plan Patient Name: GAVIN CLARK Facility: [facility]:[place] : 1940 Planned Disposition: Hospice Home Anticipated Discharge Date: Discharge Date: 10/01/2018 Expected LOS: 0 Initial Reviewer: [email or web address] Initial Review Date: 09/28/2018 Generated: 10/05/18 12:15 pm Comments DCP- Discharge Planning Updated by [email or web address]: Мария Lees on 09/30/18 4:[address] RUSS WITH [facility] STATED THAT THEY WOULD CALL AND COME TO EVALUATE DCP- Discharge Planning Updated by [email or web address]: Мария Lees on 09/30/18 3:[address] TY WITH HOSPICE WITH [facility] CALLED BACK AND STATED THAT THE WOULD LIKE HIM TO STAY AT [facility], REFERALL SENT TO [facility] SPOKE WITH RUSS DCP- Discharge Planning Updated by [email or web address]: Мария Lees on 09/30/18 3:[address] ORDER RECEIVED FOR INPATIENT HOSPICE, I CALLED [facility] AND SPOKE WITH TY, SHE IS GOING TO CALL THE AND GET BACK WITH ME DCP- Discharge Planning Updated by [email or web address]: Мария Lees on 09/28/18 4:[address] Patient Name: GAVIN CLARK Admission Status: ER Accout number: [id number] Admission Date: 09-28-2018 : 1940 Admission Diagnosis: Attending: MARIELLE YANG Current LOS: 1 Anticipated DC Date: Planned Disposition: Hospice Home Primary Insurance: MEDICARE A & B Discharge Planning Comments: CM met with patient and to assess discharge planning . Patient is currently on hospice at home with [facility]. He has an aide 5 days a week. All DME is provided through hospice. He has a hospital bed, home o2, wheelchair at home. He has a pleurex drain and the supplies. CM will continue to follow and assist with DC planning needs. Patient lives with his he is a double amputee and will need an ambulance to take him home when he is DC. Drilling And Production Superintendent: Мария Lees DCPIA - Discharge Planning Initial Assessment Updated by [email or web address]: Мария Lees on 09/28/18 4:06 pm * Is the patient Alert and Oriented? Yes * PCP czech * [facility] [address] * Preadmission Environment Hospice * ADLs Partial Dependent * Partial ADLs (Assistance needed) Ambulation Bathing Dressing Medication Management Toileting Transfers * Equipment Bedside Commode Grab Bars Hospital Bed Oxygen * List name and contact numbers for known caregivers / representatives who currently or will assist patient after discharge: Marcella () [phone] * Verbal permission to speak to the caregivers and representatives has been obtained from the patient. Yes * Community resources currently utilized Hospice Home * Please name any agencies selected above. * Additional services required to return to the preadmission environment? No * Can the patient safely return to the preadmission environment? Yes * Has this patient been hospitalized within the prior 30 days at any hospital? No Coverage Notice Reviewer: [email or web address] Erendira Munoz Notice Issued Date-Time: 10/01/2018 16:48 Notice Type: IM Discharge Notice Notice Delivered To: Family Member Relationship to Patient: Spouse Jigsawyer Name: Marcella Delivery Method: HAND - Hand Delivered Genevieve Days: Prior Verbal Notification: Recipient Understood Notice: Yes Recipient Signature: Yes Med Rec Note Co-signed by Attending: Coverage Notice Comment: IMM explained, signed by , copy given, original placed in MR Last DP export: 09/30/18 4:06 p Patient Name: GAVIN CLARK Page 01462 at 1115 All edits/amendments must be made on the electronic document DICTATION DATE: 10/05/181113 GARDEN EQUIPMENT MECHANIC: SYEDA 10/05/181113 RPT#: [id number] DC DATE:10/01/18 STATUS: DIS IN [facility] [address] [place] [address] END OF REPORT
--- NOTE | ~2018-09-27 | MORECARE ---
CASE MANAGEMENT DISCHARGE SUMMARY PATIENT: GAVIN CLARK JR UNIT: [id number] ADM DATE: 09/28/18 AGE: 78 : 41 SEX: M ROOM/BED: D.2220 AUTHOR: SOBIA MCCRARY PHYSICIAN: REFERRING PHYSICIAN: MARIELLE YANG MD DATE OF SERVICE: 09/30/18 Discharge Plan Patient Name: GAVIN CLARK Facility: [facility]:[place] : 1940 Planned Disposition: Hospice Home Anticipated Discharge Date: Discharge Date: Expected LOS: Initial Reviewer: [email or web address] Initial Review Date: 09/28/2018 Generated: 09/30/18 5:06 pm Comments DCP- Discharge Planning Updated by [email or web address]: Мария Lees on 09/30/18 3:[address] RUSS WITH [facility] STATED THAT THEY WOULD CALL AND COME TO EVALUATE DCP- Discharge Planning Updated by [email or web address]: Мария Lees on 09/30/18 2:[address] TY WITH HOSPICE WITH [facility] CALLED BACK AND STATED THAT THE WOULD LIKE HIM TO STAY AT [facility], REFERALL SENT TO [facility] SPOKE WITH RUSS DCP- Discharge Planning Updated by [email or web address]: Мария Lees on 09/30/18 2:[address] ORDER RECEIVED FOR INPATIENT HOSPICE, I CALLED [facility] AND SPOKE WITH TY, SHE IS GOING TO CALL THE AND GET BACK WITH ME DCP- Discharge Planning Updated by [id number]: Мария Lees on 09/28/18 3:[address] Patient Name: GAVIN CLARK Admission Status: ER Accout number: [id number] Admission Date: 09-28-2018 : 1940 Admission Diagnosis: Attending: MARIELLE YANG Current LOS: 1 Anticipated DC Date: Planned Disposition: Hospice Home Primary Insurance: MEDICARE A & B Discharge Planning Comments: CM met with patient and to assess discharge planning . Patient is currently on hospice at home with [facility]. He has an aide 5 days a week. All DME is provided through hospice. He has a hospital bed, home o2, wheelchair at home. He has a pleurex drain and the supplies. CM will continue to follow and assist with DC planning needs. Patient lives with his he is a double amputee and will need an ambulance to take him home when he is DC. Auto Salvage Worker: Мария Lees DCPIA - Discharge Planning Initial Assessment Updated by [email or web address]: Мария Lees on 09/28/18 4:06 pm * Is the patient Alert and Oriented? Yes * PCP arabic * [facility] [address] * Preadmission Environment Hospice * ADLs Partial Dependent * Partial ADLs (Assistance needed) Ambulation Bathing Dressing Medication Management Toileting Transfers * Equipment Bedside Commode Grab [facility] Bed Oxygen * List name and contact numbers for known caregivers / representatives who currently or will assist patient after discharge: Marcella () [phone] * Verbal permission to speak to the caregivers and representatives has been obtained from the patient. Yes * Community resources currently utilized Hospice Home * Please name any agencies selected above. [facility] * Additional services required to return to the preadmission environment? No * Can the patient safely return to the preadmission environment? Yes * Has this patient been hospitalized within the prior 30 days at any hospital? No Last DP export: 09/30/18 2:56 p Patient Name: GAVIN CLARK Page 47884 at 1606 All edits/amendments must be made on the electronic document DICTATION DATE: 09/30/181605 JOINERY MACHINIST: SYEDA 09/30/18 160 RPT#: [id number] DC DATE: STATUS: ADM IN [facility] [address] [place] [address] END OF REPORT
[~2018-09-27 22:12] MED LIST changes: +KAYEXALATE15 G/60 ML PO
[2018-09-27 23:20] VITALS: BP 116/59
[2018-09-27 23:38] LABS: HEMATOCRIT 27.2 % (42.0-54.0); HEMOGLOBIN 9.4 g/dL (13.5-17.5); LYMPHOCYTES 2.5 % (15-50); MCH 29.6 pg (26.0-34.0); MCHC 34.6 g/dL (31.0-37.0); MCV 85.5 fL (80.0-100.0); RBC 3.18 10x6/uL (4.20-6.10); RDW 16.7 % (11.5-14.5); WBC 14.3 10x3/uL (4.8-10.8)
[2018-09-27 23:39] LABS: PLATELET COUNT 175 10x3/uL (130-400)
[2018-09-28] VITALS (9 sets, daily range): BP systolic 102–150; BP diastolic 39–67; Ht 165.1 cm; Wt 54.4 kg
[2018-09-28 00:10] LABS: ALBUMIN 1.6 g/dL (3.4-5.0); ALKALINE PHOSPHATASE 400 U/L (46-116); ALT (SGPT) 23 U/L (10-68); BILIRUBIN - TOTAL 0.46 mg/dL (0.2-1.3); CALC OSMOLALITY 270 mosm/kg (275-300); CALCIUM 8.1 mg/dL (8.5-10.1); CHLORIDE - SERUM 93 mmol/L (98-107); CKMB 1.6 U/L (0.0-3.6); CREATINE KINASE 41 UL (21-232); GLUCOSE 166 mg/dL (74-106); PROTEIN - SERUM 6.6 g/dL (6.4-8.2); SODIUM 121 mmol/L (136-145); UREA NITROGEN 77 mg/dL (7-18); eGFR NON AFRICAN AMERICAN 15 mL/min (90-120)
[2018-09-28 00:24] LABS: POTASSIUM - SERUM 6.7 mmol/L (3.5-5.1)
[2018-09-28] MEDS ORDERED: TYLENOL650 MG RC (04:22)
[2018-09-28] MEDS ORDERED: CHRONULAC30 ML PO (04:28)
[2018-09-28 06:00] LABS: BASOPHILS 0 % (0-2); EOSINOPHILS 0 % (0-7); HEMATOCRIT 24.6 % (42.0-54.0); HEMOGLOBIN 8.5 g/dL (13.5-17.5); IMMATURE GRANULOCYTES 0.4 % (0-5); MCH 29.5 pg (26.0-34.0); MCHC 34.6 g/dL (31.0-37.0); MCV 85.4 fL (80.0-100.0); MEAN PLATELET VOLUME 10.6 fL (7.4-10.4); MONOCYTES 7.2 % (2-11); NEUTROPHILS 89.4 % (40-80); PLATELET COUNT 162 10x3/uL (130-400); RBC 2.88 10x6/uL (4.20-6.10); RDW 15.6 % (11.5-14.5); WBC 12.9 10x3/uL (4.8-10.8)
[2018-09-28 06:39] LABS: ALBUMIN 1.4 g/dL (3.4-5.0); ANION GAP 17.2 mmol/L (8-16); BILIRUBIN - TOTAL 0.37 mg/dL (0.2-1.3); CARBON DIOXIDE 15.2 mmol/L (21.0-32.0); PROTEIN - SERUM 5.9 g/dL (6.4-8.2)
[2018-09-28 06:43] LABS: POTASSIUM - SERUM 6.4 mmol/L (3.5-5.1)
[2018-09-28 09:52] LABS: ANION GAP 17.4 mmol/L (8-16); CALCIUM 7.8 mg/dL (8.5-10.1); CARBON DIOXIDE 15.8 mmol/L (21.0-32.0); CREATININE - SERUM 3.9 mg/dL (0.6-1.3)
[2018-09-28 09:55] LABS: POTASSIUM - SERUM 6.2 mmol/L (3.5-5.1)
[2018-09-28 13:54] LABS: APPEARANCE CLEAR (CLEAR); COLOR YELLOW (YELLOW); SPECIFIC GRAVITY 1.015 (1.005-1.020)
[2018-09-28 13:55] LABS: BILIRUBIN NEGATIVE (NEGATIVE); GLUCOSE NEGATIVE (NEGATIVE); KETONE NEGATIVE (NEGATIVE); NITRITE NEGATIVE (NEGATIVE); PROTEIN NEGATIVE (NEGATIVE); UROBILINOGEN NORMAL (NORMAL)
[2018-09-28 15:45] LABS: ANION GAP 17.9 mmol/L (8-16); CARBON DIOXIDE 14.4 mmol/L (21.0-32.0); CREATININE - SERUM 3.8 mg/dL (0.6-1.3); POTASSIUM - SERUM 5.3 mmol/L (3.5-5.1)
[2018-09-28 16:37] LABS: BASOPHILS 0.2 % (0-2); EOSINOPHILS 0.3 % (0-7); HEMOGLOBIN 8.6 g/dL (13.5-17.5); IMMATURE GRANULOCYTES 0.5 % (0-5); LYMPHOCYTES 2.8 % (15-50); MCH 29.1 pg (26.0-34.0); MCHC 34.4 g/dL (31.0-37.0); MCV 84.5 fL (80.0-100.0); MEAN PLATELET VOLUME 9.6 fL (7.4-10.4); MONOCYTES 6.4 % (2-11); NEUTROPHILS 89.8 % (40-80); PLATELET COUNT 153 10x3/uL (130-400); RBC 2.96 10x6/uL (4.20-6.10); RDW 15.3 % (11.5-14.5); WBC 11.5 10x3/uL (4.8-10.8)
[2018-09-29 00:35] VITALS: BP 128/92
[2018-09-29 04:42] VITALS: BP 101/84
[2018-09-29 06:26] LABS: BASOPHILS 0.1 % (0-2); EOSINOPHILS 0.1 % (0-7); HEMOGLOBIN 7.6 g/dL (13.5-17.5); IMMATURE GRANULOCYTES 0.4 % (0-5); MCHC 34.5 g/dL (31.0-37.0); MEAN PLATELET VOLUME 8.8 fL (7.4-10.4); NEUTROPHILS 90.4 % (40-80); RBC 2.62 10x6/uL (4.20-6.10); RDW 15.3 % (11.5-14.5)
[2018-09-29 06:33] LABS: ANION GAP 15.5 mmol/L (8-16); CALCIUM 7.8 mg/dL (8.5-10.1); CARBON DIOXIDE 17.3 mmol/L (21.0-32.0); CREATININE - SERUM 3.7 mg/dL (0.6-1.3); POTASSIUM - SERUM 3.8 mmol/L (3.5-5.1)
[2018-09-29 06:47] LABS: PLATELET COUNT 119 10x3/uL (130-400)
[2018-09-29 08:46] VITALS: BP 86/38
[2018-09-29 12:30] VITALS: BP 88/41
[2018-09-29 15:45] VITALS: BP 115/43
[2018-09-29 22:16] VITALS: BP 87/42
[2018-09-30 04:58] VITALS: BP 100/54
[2018-09-30 07:54] LABS: ANION GAP 15.1 mmol/L (8-16); CALCIUM 7.5 mg/dL (8.5-10.1); CARBON DIOXIDE 18.8 mmol/L (21.0-32.0); CREATININE - SERUM 3.7 mg/dL (0.6-1.3)
[2018-09-30 07:58] LABS: POTASSIUM - SERUM 2.9 mmol/L (3.5-5.1)
[2018-09-30 11:00] VITALS: BP 85/43
[2018-09-30 21:26] VITALS: BP 79/38
[2018-10-01 05:11] VITALS: BP 92/42
[2018-10-01 08:47] VITALS: BP 98/53
[2018-10-01 12:46] VITALS: BP 112/50
== END 2018-10-01 17:49 | disposition hospice, inpatient (51) | DRG 682 ==
LOC: D.ER 22:12 → D.MS 09-28 03:14
PROVIDERS: Family Medicine; Internal Medicine
DX: N17.9 Acute kidney failure, unspecified (principal); J18.9 Pneumonia, unspecified organism; C22.0 Liver cell carcinoma; E87.1 Hypo-osmolality and hyponatremia; E87.2 Acidosis; Z66 Do not resuscitate; R09.1 Pleurisy; K74.60 Unspecified cirrhosis of liver; I48.91 Unspecified atrial fibrillation; I25.10 Atherosclerotic heart disease of native coronary artery without angina pectoris; K21.9 Gastro-esophageal reflux disease without esophagitis; E87.5 Hyperkalemia; E11.22 Type 2 diabetes mellitus with diabetic chronic kidney disease; I12.9 Hypertensive chronic kidney disease with stage 1 through stage 4 chronic kidney disease, or unspecified chronic kidney disease; N18.9 Chronic kidney disease, unspecified; E86.0 Dehydration

== ENCOUNTER 2018-10-01 18:40 | Inpatient (IN) | payer OTHER ==
[~2018-10-01] VITALS: Ht 165.1 cm; Wt 54.4 kg
--- NOTE | ~2018-10-01 | MORECARE ---
CASE MANAGEMENT DISCHARGE SUMMARY PATIENT: GAVIN CLARK JR UNIT: [id number] ADM DATE: 10/01/18 AGE: 78 : 41 SEX: M ROOM/BED: D.2240 AUTHOR: SOBIA MCCRARY PHYSICIAN: REFERRING PHYSICIAN: ANGEL PRESCOTT MD DATE OF SERVICE: 10/05/18 Discharge Plan Patient Name: GAVIN CLARK Facility: [facility]:[place] : 1940 Planned Disposition: Anticipated Discharge Date: Discharge Date: Expected LOS: Initial Reviewer: [email or web address] Initial Review Date: 10/01/2018 Generated: 10/05/18 7:55 am Comments DCP- Discharge Planning Updated by [email or web address]: Shelley Crespo on 10/05/18 5:[address] Patient is on hospice. Patient Name: GAVIN CLARK Page 75437 at 0655 All edits/amendments must be made on the electronic document DICTATION DATE: 10/05/18654 PLASTIC JOINT MAKER: SYEDA 10/05/18654 RPT#: [id number] DC DATE: STATUS: ADM IN [facility] [address] [place] [address] END OF REPORT
--- NOTE | ~2018-10-01 | MORECARE ---
CASE MANAGEMENT DISCHARGE SUMMARY PATIENT: GAVIN CLARK JR UNIT: [id number] ADM DATE: 10/01/18 AGE: 78 : 41 SEX: M ROOM/BED: D.2240 AUTHOR: SOBIA MCCRARY PHYSICIAN: REFERRING PHYSICIAN: ANGEL PRESCOTT MD DATE OF SERVICE: 10/13/18 Discharge Plan Patient Name: GAVIN CLARK Facility: [facility]:[place] : 1940 Planned Disposition: Home with Hospice Anticipated Discharge Date: Discharge Date: 10/12/2018 Expected LOS: 0 Initial Reviewer: [email or web address] Initial Review Date: 10/01/2018 Generated: 10/13/18 11:51 am Comments DCP- Discharge Planning Updated by [email or web address]: Shelley Crespo on 10/05/18 5:[address] Patient is on hospice. Last DP export: 10/05/18 5:55 a Patient Name: GAVIN CLARK Page 53823 at 1051 All edits/amendments must be made on the electronic document DICTATION DATE: 10/13/18 105 PETROLEUM ENGINEERING TEACHER: SYEDA 10/13/18 1051 RPT#: [id number] DC DATE:10/12/18 STATUS: DIS IN [facility] [address] [place] [address] END OF REPORT
[~2018-10-01 18:40] MED LIST changes: +CHRONULAC30 ML PO; +TYLENOL650 MG RC
[2018-10-01 18:54] VITALS: BP 112/50
[2018-10-01 21:26] VITALS: BP 96/49
[2018-10-02 04:51] VITALS: BP 93/45
[2018-10-02 09:35] VITALS: BP 93/52
[2018-10-02 13:37] VITALS: Ht 165.1 cm; Wt 54.4 kg
[2018-10-02 20:39] VITALS: BP 102/36
[2018-10-03 09:04] VITALS: BP 124/55
[2018-10-03 11:52] VITALS: BP 107/32
[2018-10-03 15:32] VITALS: BP 101/55
[2018-10-03 20:50] VITALS: BP 95/56
[2018-10-04 08:37] VITALS: BP 120/47
[2018-10-04 13:07] VITALS: BP 114/55
[2018-10-04 16:55] VITALS: BP 115/40
[2018-10-04 20:00] VITALS: BP 92/47
[2018-10-05 05:00] VITALS: BP 96/47
[2018-10-05 08:51] VITALS: BP 111/52
[2018-10-05 14:50] VITALS: BP 100/61
[2018-10-05 16:48] VITALS: BP 106/40
[2018-10-05 20:08] VITALS: BP 94/56
[2018-10-06 04:40] VITALS: BP 94/44
[2018-10-06 09:57] VITALS: BP 112/50
[2018-10-06 12:48] VITALS: BP 95/76
[2018-10-06 17:08] VITALS: BP 90/47
[2018-10-06 20:00] VITALS: BP 101/46
[2018-10-07 05:00] VITALS: BP 116/42
[2018-10-07 08:35] VITALS: BP 106/46
[2018-10-07 13:48] VITALS: BP 94/44
[2018-10-07 20:00] VITALS: BP 101/53
[2018-10-08 04:00] VITALS: BP 100/56
[2018-10-08 08:34] VITALS: BP 146/73
[2018-10-08 12:22] VITALS: BP 129/72
[2018-10-08 21:16] VITALS: BP 87/36
[2018-10-09 08:43] VITALS: BP 110/49
[2018-10-09 21:31] VITALS: BP 191/66
[2018-10-10 14:11] VITALS: BP 102/51
[2018-10-10 20:00] VITALS: BP 108/59
[2018-10-11 08:21] VITALS: BP 109/51
[2018-10-11 20:00] VITALS: BP 101/49
[2018-10-12 07:43] VITALS: BP 142/67
== END 2018-10-12 12:12 | disposition home health service (06) | DRG 951 ==
LOC: D.MS 18:40
DX: Z51.5 Encounter for palliative care (principal)